=== PATIENT | male | born 1955 | race Two or more races ===

== ENCOUNTER → 2024-05-01 | Outpatient (CLI) | payer OTHER, MEDICAID, SELFPAY ==
[2024-05-01 08:36] LABS: Basophils % (Auto) 0 % (0-2.5); Eosinophils # (Auto) 0.1 Thou/mm3 (0.0-0.5); Eosinophils % (Auto) 1 % (0-10); Hematocrit 56.8 % (41.0-53.0); Hemoglobin 18.6 g/dL (13.5-16.0); Immature Granulocytes % (Auto) 0 % (0-0); Immature Granulocytes Auto 0.03 Thou/mm3 (0.00-0.00); Lymphocytes # (Auto) 3.4 Thou/mm3 (1.0-4.8); Lymphocytes % (Auto) 35 % (10-50); Mean Corpuscular HGB Conc 32.7 g/dl (31.0-37.0); Mean Corpuscular Volume 89 fL (80-100); Monocytes # (Auto) 0.6 Thou/mm3 (0.0-0.8); Monocytes % (Auto) 6 % (0-12); Neutrophils # (Auto) 5.6 Thou/mm3 (1.8-7.7); Neutrophils % (Auto) 57 % (37-80); Nucleated Red Blood Cell % 0 /100 WBC (0); Platelet Count 232 Thou/mm3 (140-440); RDW Standard Deviation 43.6 fL (35.1-43.9); Red Blood Count 6.41 Miln/mm3 (4.50-5.90); White Blood Count 9.7 Thou/mm3 (3.8-10.6)
[2024-05-01 09:11] LABS: Glucose Estimated Average 117 mg/dL (80-131); Hemoglobin A1C 5.7 % Hgb (4.8-6.0)
[2024-05-01 09:11] LABS: Creatinine MALB Rnd Ur 166 mg/dL (30-125); Microalbumin Creat Ratio 14 mg/gCrea (<30); Microalbumin, Random Urine 24 mg/L (0-300)
[2024-05-01 09:15] LABS: Alanine Aminotransferase 65 U/L (10-49); Albumin, Serum 4.3 gm/dL (3.4-4.8); Albumin/Globulin Ratio 1.4 (1.2-2.2); Alkaline Phosphatase 100 U/L (46-116); Anion Gap 5 (7-16); Aspartate Amino Transferase 34 U/L (0-34); BUN/Creatinine Ratio 14 Ratio (12-20); Bilirubin,Total 0.9 mg/dL (0.3-1.2); Blood Urea Nitrogen 17 mg/dL (9-23); Calcium 9.3 mg/dL (8.3-10.6); Calcium (Corrected) 9.3 mg/dL (8.5-10.1); Carbon Dioxide 29.3 mMol/L (20.0-31.0); Cardiac Risk Estimate 2.6 RATIO (4.0-6.7); Chloride 106 mMol/L (98-107); Cholesterol 94 mg/dL (132-200); Creatinine (Component) 1.2 mg/dL (0.6-1.3); Globulin 3.1 gm/dL (2.3-3.5); Glucose 123 mg/dL (74-106); HDL Cholesterol 36 mg/dL (40-60); LDL Cholesterol,Calculated 32 mg/dL (0-130); Osmolality,Calculated 281 (275-295); Potassium 4.3 mMol/L (3.4-5.1); Sodium 140 mMol/L (136-145); Total Protein 7.4 gm/dL (5.7-8.2); Triglycerides 129 mg/dL (30-150); eGFR > 60 See Note
== END | disposition home or self-care (01) ==
PROVIDERS: PCP Internal Medicine; Referring Provider Internal Medicine; Visit Provider Internal Medicine
DX: E11.65 Type 2 diabetes mellitus with hyperglycemia (principal); E78.5 Hyperlipidemia, unspecified; I10 Essential (primary) hypertension; Z79.02 Long term (current) use of antithrombotics/antiplatelets
CPT/HCPCS: 36415; 80053; 80061; 82043; 82570; 83036; 85025

== ENCOUNTER → 2024-08-11 | Outpatient (CLI) | payer MEDICARE, MEDICAID, SELFPAY ==
[2024-08-11 07:20] LABS: Misc Send Out* See Sep Rpt
[2024-08-11 08:36] LABS: Basophils % (Auto) 0 % (0-2.5); Eosinophils # (Auto) 0.1 Thou/mm3 (0.0-0.5); Eosinophils % (Auto) 1 % (0-10); Hematocrit 54.2 % (41.0-53.0); Hemoglobin 18.4 g/dL (13.5-16.0); Immature Granulocytes % (Auto) 0 % (0-0); Immature Granulocytes Auto 0.04 Thou/mm3 (0.00-0.00); Immature Reticulocyte Fraction 10.4 % (2.3-13.4); Lymphocytes # (Auto) 3.4 Thou/mm3 (1.0-4.8); Lymphocytes % (Auto) 34 % (10-50); Mean Corpuscular HGB Conc 33.9 g/dl (31.0-37.0); Mean Corpuscular Hemoglobin 30.1 pg (25.0-35.0); Mean Corpuscular Volume 89 fL (80-100); Monocytes # (Auto) 0.6 Thou/mm3 (0.0-0.8); Monocytes % (Auto) 6 % (0-12); Neutrophils # (Auto) 5.7 Thou/mm3 (1.8-7.7); Neutrophils % (Auto) 57 % (37-80); Nucleated Red Blood Cell % 0 /100 WBC (0); Platelet Count 216 Thou/mm3 (140-440); RDW Standard Deviation 42.9 fL (35.1-43.9); Red Blood Count 6.11 Miln/mm3 (4.50-5.90); Reticulocyte % (Auto) 1.6 % (0.5-1.5); Reticulocyte Hgb Content 34.1 pg (28.0-35.0)
[2024-08-11 08:52] LABS: Alanine Aminotransferase 87 U/L (10-49); Albumin, Serum 4.2 gm/dL (3.4-4.8); Albumin/Globulin Ratio 1.4 (1.2-2.2); Alkaline Phosphatase 95 U/L (46-116); Anion Gap 9 (7-16); Aspartate Amino Transferase 43 U/L (0-34); BUN/Creatinine Ratio 19 Ratio (12-20); Bilirubin,Total 1.1 mg/dL (0.3-1.2); Blood Urea Nitrogen 19 mg/dL (9-23); Calcium 9.1 mg/dL (8.3-10.6); Calcium (Corrected) 9.1 mg/dL (8.5-10.1); Carbon Dioxide 25.1 mMol/L (20.0-31.0); Cardiac Risk Estimate 2.5 RATIO (4.0-6.7); Chloride 110 mMol/L (98-107); Cholesterol 96 mg/dL (132-200); Globulin 3.1 gm/dL (2.3-3.5); Glucose 111 mg/dL (74-106); HDL Cholesterol 38 mg/dL (40-60); LDL Cholesterol,Calculated 30 mg/dL (0-130); Osmolality,Calculated 290 (275-295); Potassium 4.1 mMol/L (3.4-5.1); Sodium 144 mMol/L (136-145); Total Protein 7.3 gm/dL (5.7-8.2); Triglycerides 142 mg/dL (30-150); eGFR > 60 See Note
[2024-08-11 08:55] LABS: Folate 10.25 ng/mL (>5.38); Vitamin B12 608 pg/mL (211-911); Vitamin D 25 Hydroxy Total 21.3 ng/mL (7.3-40.2)
[2024-08-11 09:16] LABS: Ferritin 116 ng/mL (10.5-307.3); Total Iron Binding Capacity 319 mcg/dL (250-425)
[2024-08-11 09:25] LABS: Iron 126 mcg/dL (65-175); Percent Iron Saturation 39 % (20-55); Unsaturated Iron Binding 193 (225-295)
[2024-08-11 09:47] LABS: Creatinine MALB Rnd Ur 106 mg/dL (30-125); Microalbumin Creat Ratio 14 mg/gCrea (<30); Microalbumin, Random Urine 15 mg/L (0-300)
[2024-08-11 10:03] LABS: Glucose Estimated Average 114 mg/dL (80-131); Hemoglobin A1C 5.6 % Hgb (4.8-6.0)
== END | disposition home or self-care (01) ==
LOC: COPL 07:00
PROVIDERS: PCP Family Medicine; Referring Provider Nurse Practitioner Family; Visit Provider Nurse Practitioner Family
DX: E11.65 Type 2 diabetes mellitus with hyperglycemia (principal); R79.9 Abnormal finding of blood chemistry, unspecified; I10 Essential (primary) hypertension; Z79.02 Long term (current) use of antithrombotics/antiplatelets
CPT/HCPCS: 36415; 80053; 80061; 82043; 82306; 82570; 82607; 82728; 82746; 83036; 83540; 83550; 85025; 85046

== ENCOUNTER 2024-10-29 08:32 | Outpatient (AMB) | payer MEDICARE, MEDICAID, SELFPAY ==
--- NOTE | 2024-10-29 08:36 | ACNOTE_ITS ---
Vital Signs 10/29/24 08:44 Height 1.78 m Height Method Stated Weight 133.073 kg Weight Measurement Method Standing Scale BMI 42.0 BP 121/82 Blood Pressure Source Automatic Cuff Blood Pressure Location Right Upper Arm Position Sitting Respiration 18 Pulse 93 Pulse Source Monitor Temp 97.8 F Temp Source Temporal Artery Scan Pulse Oximetry (%) 94 L Oxygen Delivery Method Room Air Allergies/Meds Allergies & Medications Allergies No Known Allergies Allergy (Verified 10/29/24 08:46) Medication Reconciliation aspirin 81 mg tablet 81 mg PO QDAY #90 tabs 10/29/24 [Rx] metformin 1,000 mg tablet 1,000 mg PO QDAY 10/29/24 [History Confirmed 10/29/24] amlodipine 2.5 mg tablet 2.5 mg PO QDAY #30 tabs 11/17/24 [Rx] apixaban 5 mg tablet (Eliquis) 5 mg PO BID #60 tabs 11/17/24 [Rx] atorvastatin 40 mg tablet 40 mg PO QHS #30 tabs 11/17/24 [Rx] carvedilol 3.125 mg tablet 3.125 mg PO BID #60 tabs 11/17/24 [Rx] diltiazem HCl 60 mg capsule,extended release 12 hr 60 mg PO BID #60 caps 11/17/24 [Rx] empagliflozin 10 mg tablet (Jardiance) 10 mg PO QDAY #30 tabs 11/17/24 [Rx] famotidine 20 mg tablet 20 mg PO BID #60 tabs 11/17/24 [Rx] metformin 1,000 mg tablet 1,000 mg PO BID #60 tabs 11/17/24 [Rx] semaglutide 1 mg/dose (4 mg/3 mL) subcutaneous pen injector (Ozempic) 1 mg (0.75 mL) subcut QWEEK #3 mL 11/17/24 [Rx] MA Intake Visit Data Collection New Patient or Established: Established Patient (seen at [facility] within 3 years) Seen by Clinical Staff ONLY (RN/MA): No Pain Present Currently: No Pain scale:: 0 Pain Scale Used: TorresTeja/Numerical Market Asset Protection Manager Required: No PCP or OBGYN visit in last 3 months: No Hx Now: No Do You Feel Safe at Home: Yes Authorities Contacted: N/A Smoking Status Smoking Status: Never smoker Immunization / Flu Flu Vaccine in the Last 12 Months: No Flu Vaccine Exclusion Criteria: No Exclusion Criteria Past Medical History Past Medical History CARDIAC: Positive Cardiac Disorders, Atrial Fibrillation and Hypertension; Negative Congestive Heart Failure RESPIRATORY: Negative Chronic Obstructive Pulmonary Disease (COPD) or Asthma GENITOURINARY: Negative Renal Disease ENDOCRINE: Negative Diabetes Mellitus Type 1 or Diabetes Mellitus Type 2 HEMATOLOGIC: Negative Sickle Cell Disease Social History SMOKING STATUS: Smoking status: Never smoker ALCOHOL: Alcohol Intake: Never HOUSING: Housing: House LIVES WITH: Lives With: Children Patient Portal Questionaires Social History Living Situation History Housing: House Tobacco History Smoking Status: Never smoker Alcohol History Alcohol Intake: Never Domestic Abuse History Do You Feel Safe at Home: Yes Review of Systems Report any current symptoms Only answer those that you have currently: Past Medical History Past Medical History Have you ever been diagnosed with any of the following: Cardiology Problems Atrial Fibrillation: Yes Congestive Heart Failure: No Hypertension: Yes Respiratory Problems Chronic Obstructive Pulmonary Disease (COPD): No Asthma: No Genital/Urinary Problems Renal Disease: No Endocrine Problems Diabetes Mellitus Type 1: No Diabetes Mellitus Type 2: No Blood Problems Sickle Cell Disease: No History of Present Illness HPI Narrative 69 year old male wt PMHx CAD, double bipass 2022 at , AFIB on ELIQUIS, HTN, HLD, T2DM, GERD. 11/04/2024: Here to establish care. Previously seeing PCP at [facility] but needs new provider in [facility]. 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 Born and raised in [place],. He is since 20 years, has 3 children in [facility], lives with his son. Has a family hx of heart disease, mother has open heart surgery in her 80s and of old age, brother with colon cancer at the age of 65. Never used tobacco in the past. Used to drink alcohol occasionally, quit 5 years ago, used THC when he was younger but no longer using. Complains of SOB with minimal exertion. States he feels tired and short of breath after 10 min walking, usually has to rest for few minutes before he can continue. Denies chest pain, orthopnea, palpitations, cough, fever, headache, syncope or presyncope, GI or urinary symptoms. Also reports LE edema on and off, not worsened over recently. States he takes his medications as prescribed. He checks his BP at home, usually WNL. On exam, he had 2+ freeman LE edema, with chronic venous status. Lungs clear to auscultation without rales or rhonchi. Vitals WNL. Will refer to cardiology given persistent symptoms of sob, no echo on file, patient needs new operating room assistant in town after his insurance changed. Continue with current medications. He had annual labs done earlier this month, states all were normal per his knowledge, he will return to office with labs for review. Advised to return to office or got to ED if sob worsen or does not improve, or new symptoms including. chest pain, palpitations, worsening LE edema. Labs from : TG 142, Cholesterol 96, LDL 30, HDL 38. A1c 5.6. Hgb 18.4, PLT 216. Coag panel relatively normal. Review of Systems Review of Systems Narrative Review of Systems: 12 point system review negative except for above mentioned. Objective/Exam Narrative Physical exam: GENERAL * Normal appearing adult make, NAD. HEENT * NCAT.?ABBY. Oral mucosa is moist. Patent Nares NECK * Supple, nontender, no thyromegaly, no meningismus, no JVD, no step offs CHEST * RRR, no m/g/r * CTAB, no w/r/r. Symmetrical chest rise. No intercostal subcostal retraction * Atraumatic, nontender, no crepitus, symmetrical expansion. ABDOMEN * Soft, flat, nontender. No guarding/rebound tenderness/masses. * Bowel sounds presents EXTREMITIES * No edema/cyanosis.? SKIN * Warm and dry, no jaundice/rashes. NEUROMUSCULAR * No lumbar or midline, no CVA, no paraspinal muscle spasm or tenderness. * Moves all 4 extremities well, with full ROM and good CSM. * VALLEJO x4, CN II-XII grossly intact. * No focal neurologic deficits. PSYCHIATRY * Normal mood and affect, cooperative, no SI or HI or hallucinations. Assessment & Plan Diagnosis / Problem List (1) Adult general medical exam: Status: Acute (2) SOB (shortness of breath): Status: Acute (3) CAD (coronary artery disease): Status: Acute Qualifiers: Associated angina: without angina Coronary Disease-Associated Artery/Lesion type: bypass graft, autologous artery Qualified Code(s): I25.810 - Atherosclerosis of coronary artery bypass graft(s) without angina pectoris (4) History of coronary artery bypass graft x 2: Status: Acute (5) Congestive heart failure: Status: Acute Qualifiers: Heart failure chronicity: chronic Heart failure type: unspecified Qualified Code(s): I50.9 - Heart failure, unspecified (6) Afib: Status: Acute Qualifiers: Atrial fibrillation type: longstanding persistent Qualified Code(s): I4 8.11 - Longstanding persistent atrial fibrillation (7) HTN (hypertension): Status: Acute Qualifiers: Hypertension type: primary hypertension Qualified Code(s): I10 - Essential (primary) hypertension (8) HLD (hyperlipidemia): Status: Acute Qualifiers: Hyperlipidemia type: mixed hyperlipidemia Qualified Code(s): E78.2 - Mixed hyperlipidemia (9) T2DM (type 2 diabetes mellitus): Status: Acute Qualifiers: Diabetes mellitus complication status: without complication Diabetes 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 Complains of SOB with minimal exertion. Has 2+ LE edema on exam. Lung exam is clear without rales or rhonchi. Denies chest pain. Needs new operating room assistant in town. Will refer to cardiology given persistent symptoms of sob, no echo on file, patient needs new operating room assistant in town after his insurance changed. Continue with current medications. He had annual labs done earlier this month, states all were normal per his knowledge, he will return to office with labs for review. Advised to return to office or got to ED if sob worsen or does not improve, or new symptoms including. chest pain, palpitations, worsening LE edema. Labs from : TG 142, Cholesterol 96, LDL 30, HDL 38. A1c 5.6. Hgb 18.4, PLT 216. Coag panel relatively normal. Continue medications as prescribed. Recommended colonoscopy screening given his age and family history of colon cancer - patient refused at this time Orders: Referrals Cardiology Additional Assessment Attending note: I, Woo Bravo MD, attest that I was physically present for the brown portions of the service and evaluated the patient with the resident and I reviewed and discussed the case with the resident and agree with the resident's findings and plans of care as documented above. Woo Bravo MD Advanced Care Planning Advance care planning discussed with:: patient Physician Billing New Patient New Patient: E/M Level 3-CPT 58369 Office Procedures [facility] Level of Care Nursing/Assessment Patient Status: Established Patient Nursing Assessment/Reassessment: Medication Reconciliation, Update PMH in EMR and Vital Signs Coordination of Care: Complex Care and Chronic Disease 1-5, Consent,records obtained, informed consent, Education Simp Pt/Fam, Lab and Imaging orders and Staff clarify orders Established Patient Charge Established Patient Point Assignment: 100 Established Patient Point Charge: EP Level 3 (80-115)
[2024-10-29 08:44] VITALS: BP 121/82; PULSE 93; RESP 18; TEMP 36.6; O2SAT 94; BMI 42.0
== END 2024-10-29 09:33 | disposition home or self-care (01) ==
PROVIDERS: Supervising Provider Internal Medicine
DX: I25.10 Atherosclerotic heart disease of native coronary artery without angina pectoris (principal); R06.02 Shortness of breath; I11.0 Hypertensive heart disease with heart failure; I50.9 Heart failure, unspecified; I48.91 Unspecified atrial fibrillation; E78.2 Mixed hyperlipidemia; E11.9 Type 2 diabetes mellitus without complications; D75.1 Secondary polycythemia; K21.9 Gastro-esophageal reflux disease without esophagitis; Z79.01 Long term (current) use of anticoagulants; Z95.1 Presence of aortocoronary bypass graft
CPT/HCPCS: 99213; G0463

== ENCOUNTER 2025-01-29 08:52 | Outpatient (AMB) | payer MEDICARE, SELFPAY ==
[2025-01-29 09:16] VITALS: BP 93/64; PULSE 95; RESP 18; TEMP 35.6; O2SAT 95; BMI 41.1
--- NOTE | 2025-01-29 09:16 | PD.RESCLINIC ---
Vital Signs 01/29/25 09:16 Height 1.78 m Height Method Stated Weight 130.408 kg Weight Measurement Method Standing Scale BMI 41.1 BP 93/64 Blood Pressure Source Automatic Cuff Blood Pressure Location Right Upper Arm Position Sitting Respiration 18 Pulse 95 Pulse Source Monitor Temp 96.0 F L Temp Source Temporal Artery Scan Pulse Oximetry (%) 95 Oxygen Delivery Method Room Air Allergies/Meds Allergies & Medications Allergies No Known Allergies Allergy (Verified 10/29/24 08:46) MA Intake Visit Data Collection New Patient or Established: Established Patient (seen at [facility] within 3 years) Seen by Clinical Staff ONLY (RN/MA): No Reason for Visit:: PT HERE IN OFFICE DOING WELL PT COMPLAINTS OF FATIGUE Pain Present Currently: No Spar Cap Beveler Required: No PCP or OBGYN visit in last 3 months: Yes Date of Last PCP or OBGYN visit: 10/29/24 Do You Feel Safe at Home: Yes Authorities Contacted: N/A Smoking Status Smoking Status: Never smoker Immunization / Flu Flu Vaccine in the Last 12 Months: No Flu Vaccine Exclusion Criteria: Refused by Patient Past Medical History Past Medical History CARDIAC: Positive Cardiac Disorders, Atrial Fibrillation and Hypertension; Negative Congestive Heart Failure RESPIRATORY: Negative Chronic Obstructive Pulmonary Disease (COPD) or Asthma GENITOURINARY: Negative Renal Disease ENDOCRINE: Negative Diabetes Mellitus Type 1 or Diabetes Mellitus Type 2 HEMATOLOGIC: Negative Sickle Cell Disease Social History SMOKING STATUS: Smoking status: Never smoker ALCOHOL: Alcohol Intake: Never HOUSING: Housing: House LIVES WITH: Lives With: Children Patient Portal Questionaires Social History Living Situation History Housing: House Tobacco History Smoking Status: Never smoker Alcohol History Alcohol Intake: Never Domestic Abuse History Do You Feel Safe at Home: Yes Review of Systems Report any current symptoms Only answer those that you have currently: Past Medical History Past Medical History Have you ever been diagnosed with any of the following: Cardiology Problems Atrial Fibrillation: Yes Congestive Heart Failure: No Hypertension: Yes Respiratory Problems Chronic Obstructive Pulmonary Disease (COPD): No Asthma: No Genital/Urinary Problems Renal Disease: No Endocrine Problems Diabetes Mellitus Type 1: No Diabetes Mellitus Type 2: No Blood Problems Sickle Cell Disease: No History of Present Illness HPI Narrative 69 year old male wth PMHx CAD, double bipass 2022 at [place], AFIB on ELIQUIS, HTN, HLD, T2DM, GERD. 11/04/2024: Here to establish care. Previously seeing PCP at [place] but needs new provider in [facility]. 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 Born and raised in [place],. He is since 20 years, has 3 children in town, lives with his son. Has a family hx of heart disease, mother has open heart surgery in her 80s and of old age, brother with colon cancer at the age of 65. Never used tobacco in the past. Used to drink alcohol occasionally, quit 5 years ago, used THC when he was younger but no longer using. Complains of SOB with minimal exertion. States he feels tired and short of breath after 10 min walking, usually has to rest for few minutes before he can continue. Denies chest pain, orthopnea, palpitations, cough, fever, headache, syncope or presyncope, GI or urinary symptoms. Also reports LE edema on and off, not worsened over recently. States he takes his medications as prescribed. He checks his BP at home, usually WNL. On exam, he had 2+ freeman LE edema, with chronic venous status. Lungs clear to auscultation without rales or rhonchi. Vitals WNL. Will refer to cardiology given persistent symptoms of sob, no echo on file, patient needs new retail services professional in [facility] after his insurance changed. Continue with current medications. He had annual labs done earlier this month, states all were normal per his knowledge, he will return to office with labs for review. Advised to return to office or got to ED if sob worsen or does not improve, or new symptoms including. chest pain, palpitations, worsening LE edema. Labs from : TG 142, Cholesterol 96, LDL 30, HDL 38. A1c 5.6. Hgb 18.4, PLT 216. Coag panel relatively normal. 01/29/25: Patient was seen and examined in the clinic for follow-up. Patient reported he has been feeling well endorsed mild bilateral knee pain occasionally. He informed that patient had a CABG in 2022 twice. He reported his blood sugars have been under control around 120 mg/dL and A1c was 5.6. He was initially given some samples for Ozempic however insurance declined as his A1c was 5.6. Patient is not checking his blood pressure at home and was recommended to chart his blood pressure for better regulation. Prescription refills were given for all of his medications. CBC and CMP were ordered to monitor his hemoglobin and kidney functions. There is a concern for obstructive sleep apnea as patient endorses snoring at night and has a BMI of 41 therefore, Wegovy was ordered 1 mg once weekly as patient will benefit with weight loss to help with possible suspicion for ARLETH and significant cardiac history. Patient is still waiting for his referral to retail services professional and will make a call once referral is completed. Follow-up in a month. Review of Systems Review of Systems Systems Reviewed: All systems reviewed, normal except as documented Objective/Exam Narrative Physical exam: GENERAL APPEARANCE: AxOx4, obese male in no acute distress. HEENT: NC, AT. MMM. EOMI, clear conjunctiva, oropharynx clear. NECK: Supple without lymphadenopathy. No stiffness or restricted ROM. HEART: Irregular rate and regular rhythm, normal S1/S2, no m/r/g LUNGS: CTAB, moving air well. No crackles or wheezes are heard. ABDOMEN: Soft, nontender, nondistended with good bowel sounds heard. BACK: No CVAT, no obvious deformity. EXTREMITIES: Without cyanosis, clubbing or edema. NEUROLOGICAL: Grossly nonfocal. Alert and oriented, moving all 4 extremities. CN not formally tested but appear grossly intact. Observed to ambulate with normal gait. Skin: Warm and dry without any rash. Psych: Appropriate mood and affect Assessment & Plan Diagnosis / Problem List (1) Obesity (BMI 35.0-39.9 without comorbidity): Status: Acute Assessment & Plan: - Patient endorses symptoms of snoring at night and sometimes. There is a concern for possible suspicion for ARLETH/obstructive sleep apnea. BMI 41. - Patient denied sleep studies for now - He was declined for Ozempic given his A1c was 5.6. Plan: - He was prescribed Wegovy 1 mg once weekly for obesity and possible concern for ARLETH - Pending insurance authorization - Recommended daily walk for 30 minutes per tolerance with exercise - Dietary modification including fiber diet and decreasing intake of fried meals and carbs (2) History of coronary artery bypass graft x 2: Status: Acute Assessment & Plan: - Patient has history of bypass x 2 and is currently taking aspirin. 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 insulin use: without residential use Diabetes mellitus complication status: without complication Qualified Code(s): E11.9 - Type 2 diabetes mellitus without complications Assessment & Plan: - Patient reported his blood sugars have been around 130 mg/dL and A1c was 5.6 Plan: - Recommended to continue metformin 1 g twice daily and Jardiance 10 mg once daily -Patient was denied for Ozempic - Ordered CBC and CMP to evaluate kidney functions (4) Afib: Status: Acute Qualifiers: Atrial fibrillation type: longstanding persistent Qualified Code(s): I48.11 - Longstanding persistent atrial fibrillation Assessment & Plan: - Currently rate controlled heart rate was 95 bpm. Plan: - Recommended to continue taking Cardizem,coreg and Eliquis - Bleeding risk for discussed and patient was advised to go to the ER immediately if he is bleeding excessively (5) Polycythemia: Status: Acute Assessment & Plan: - Patient's hemoglobin was 18.4 in August 2024 and hematocrit 54.2 - Possible differentials include ARLETH, P vera, dehydration Plan: - Follow-up with CBC to evaluate hemoglobin and hematocrit. Ideally hematocrit should be less than 45% given significant cardiac risk - Recommended to continue baby aspirin - Patient might need sleep studies next visit if hemoglobin and hematocrit continues to remain elevated - Would recommend blood donation if hemoglobin is persistently elevated (6) CAD (coronary artery disease): Status: Acute Qualifiers: Coronary Disease-Associated Artery/Lesion type: bypass graft, autologous artery Associated angina: without angina Qualified Code(s): I25.810 - Atherosclerosis of coronary artery bypass graft(s) without angina pectoris Assessment & Plan: - Patient has history of bypass x 2 and is currently taking aspirin. Plan: - Recommended to continue taking aspirin -Recommended to continue Jardiance 10 mg once daily -Continue statin therapy -Pending cardiology referral for further evaluation and follow-ups Patient was seen and discussed with attending physician, Dr.Watanakunakorn Darryl Bravo,[id number] Advanced Care Planning Advance care planning discussed with:: patient Office Procedures [facility] Level of Care Nursing/Assessment Patient Status: Established Patient Nursing Assessment/Reassessment: Medication Reconciliation, Update PMH in EMR and Vital Signs Coordination of Care: Complex Care and Chronic Disease 1-5, Consent,records obtained, informed consent, Lab and Imaging orders and Results/Orders obtained Established Patient Charge Established Patient Point Assignment: 80 Established Patient Point Charge: EP Level 3 (80-115)
== END 2025-01-29 09:49 | disposition home or self-care (01) ==
LOC: HODAHC 08:52
PROVIDERS: PCP Student in an Organized Health Care Education/Training Program; Referring Provider Student in an Organized Health Care Education/Training Program; Supervising Provider Student in an Organized Health Care Education/Training Program; Visit Provider Student in an Organized Health Care Education/Training Program
DX: E66.9 Obesity, unspecified (principal); Z68.41 Body mass index [BMI] 40.0-44.9, adult; Z71.3 Dietary counseling and surveillance; Z95.1 Presence of aortocoronary bypass graft; E11.9 Type 2 diabetes mellitus without complications; Z79.84 Long term (current) use of oral hypoglycemic drugs; I48.11 Longstanding persistent atrial fibrillation; Z79.01 Long term (current) use of anticoagulants; D75.1 Secondary polycythemia; I25.10 Atherosclerotic heart disease of native coronary artery without angina pectoris; Z79.82 Long term (current) use of aspirin; Z76.0 Encounter for issue of repeat prescription
CPT/HCPCS: 99213; G0463

== ENCOUNTER 2025-04-10 10:03 | Day surgery (SDC) | payer MEDICARE, SELFPAY ==
[2025-04-08 12:55] VITALS: BMI 42.0
--- NOTE | 2025-04-09 07:00 | EKG_ITS ---
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
[2025-04-09 10:11] LABS: Basophils # (Auto) 0.0 Thou/mm3 (0.0-0.2); Basophils % (Auto) 0 % (0-2.5); Eosinophils # (Auto) 0.2 Thou/mm3 (0.0-0.5); Eosinophils % (Auto) 1 % (0-10); Hematocrit 54.8 % (41.0-53.0); Hemoglobin 18.0 g/dL (13.5-16.0); Immature Granulocytes Auto 0.04 Thou/mm3 (0.00-0.00); Lymphocytes # (Auto) 5.6 Thou/mm3 (1.0-4.8); Lymphocytes % (Auto) 48 % (10-50); Mean Corpuscular HGB Conc 32.8 g/dl (31.0-37.0); Mean Corpuscular Hemoglobin 29.5 pg (25.0-35.0); Mean Corpuscular Volume 90 fL (80-100); Monocytes # (Auto) 1.0 Thou/mm3 (0.0-0.8); Monocytes % (Auto) 8 % (0-12); Neutrophils # (Auto) 4.9 Thou/mm3 (1.8-7.7); Neutrophils % (Auto) 42 % (37-80); Nucleated Red Blood Cell # 0.00 Thou/mm3 (0.00-0.00); Nucleated Red Blood Cell % 0 /100 WBC (0); Platelet Count 200 Thou/mm3 (140-440); RDW Standard Deviation 43.0 fL (35.1-43.9); Red Blood Count 6.10 Miln/mm3 (4.50-5.90); White Blood Count 11.7 Thou/mm3 (3.8-10.6)
[2025-04-09 10:21] LABS: Anion Gap 11 (7-16); BUN/Creatinine Ratio 11 Ratio (12-20); Blood Urea Nitrogen 12 mg/dL (9-23); Calcium 9.1 mg/dL (8.3-10.6); Carbon Dioxide 23.1 mMol/L (20.0-31.0); Chloride 109 mMol/L (98-107); Creatinine (Component) 1.1 mg/dL (0.6-1.3); Estimated Creatinine Clearance 82.0 mL/min (>60); Glucose 121 mg/dL (74-106); Osmolality,Calculated 285 (275-295); Potassium 4.2 mMol/L (3.4-5.1); Sodium 143 mMol/L (136-145); eGFR > 60 See Note
[2025-04-09 10:27] LABS: INR 1.1 (0.9-1.3); Partial Thromboplastin Time 43.5 Seconds (22.0-36.0); Prothrombin Time 11.9 Seconds (9.0-12.2)
[2025-04-10] VITALS (9 sets, daily range): BP systolic 111–151; BP diastolic 78–114; PULSE 85–106; RESP 12–20; TEMP 36.1–36.4; O2SAT 93–96; BMI 41.8
[2025-04-10] MEDS: HYDROcodone/APAP 5/325 TABLET 1 TAB PO (16:18)
[2025-04-10] MEDS: SODIUM CHLORIDE 0.45 % 500 ML 150 ML IV (16:19)
--- NOTE | 2025-04-10 16:30 | PD.CARDCATH ---
Cardiac Cath Procedure Procedure Name Date of procedure: 04/10/25 INTERNAL GRINDER TENDER: Myles Dick MD PROCEDURE PERFORMED: 1. Left heart and right heart cardiac catheterization including right, left coronary angiograms and left ventriculogram - CPT 18741 2. ASHBY angiogram - CPT 54125 - selective catheter placement into an initial second-order thoracic or brachiocephalic branch. 3. Supravalvular aortogram- CPT 13438 4. Conscious sedation for 30 minutes - CPT 51315 5. Ultrasound-guided access of the right radial artery and right femoral vein - CPT 78361 Procedure Narrative HISTORY AND INDICATIONS: Guille Dobbins is a 69M with pmhx significant for CAD s/p double bypass 06/2022 ASHBY to LAD, radial artery to diagonal on ASA, atrial fibrillation on Eliquis, HTN, HLD. Patient had ischemic cardiac work up given history and risk factors. NST showed Abnormal myocardial perfusion study as there is decreased uptake in the inferior lateral segments of LV with stress and improves with rest indicating ischemia. EF at 31%. Normal TID and wall motion. Patient was brought in for an elective cardiac catheterization with bypass graft. hence patient is a candidate for left and right coronary angiograms, scheduled for cardiac catheterization today. Discussed with patient risks, benefits and alternatives of performing left with coronary angiogram including the risks of bleeding, heart rate, stroke and with the procedure. Patient understands the risks and is willing to undergo the procedure. Consent provided for the same. H&P updated and consent was signed prior to the procedure DESCRIPTION OF PROCEDURE: The patient was brought to the cardiac catheterization lab and all asceptic precautions were followed. Patient was given 1 Mg of Versed and 50 mcg of fentanyl for moderate conscious sedation. 2 mL of lidocaine was given in the right wrist. The right femoral artery was accessed via the ultrasound guidance as well as micropuncture technique. A [address] Samoan [address] was [address] [facility] findings: 1. Left ventricular ejection fraction was to 55-60% without any regional wall motion abnormalities. LVEDP was normal at 8 mmHg. There was no significant transvalvular aortic gradient. 2. Right dominant circulation. Left main artery is a large-caliber vessel with mild diffuse stenosis. 3. LAD is a large sized artery with 100% proximal occlusion but patent bypass graft ASHBY to LAD. Medium size diagonal 1 with 50-60% stenosis of ostial portion, and radial artery to diagonal 1 bypass graft is 100% occluded. 4. LCx is a large sized artery with mild difuse disease. Medium OM1 with 70% stenosis of proximal segment and small OM2 with no significant disease. 5. RCA is a large artery with 20-30% stenosis. 6. ASHBY to LAD is patent with no disease. 7. Radial to Diagonal 1 is 100% occluded An Angio-Seal was used to achieve hemostasis of the right femoral artery. Patient will be monitored in the cardiac mounted police for the next 2 to 3 hours and will be sent to the telemetry floor. Patient recommended to follow-up with me in the office within 7 days after discharge. Complications: None Specimens: None Blood loss: Estimated 5 ml Summary/findings: 1. Abnormal stress test: LHC with bypass angiograms were performed which showed mild to moderate CAD. Left main artery with mild diffuse stenosis, patent bypass graft ASHBY to LAD, 50% stenosis of ostial diagonal 1, mild difuse disease of LCx, moderate 70% stenosis of proximal OM1, 100% occluded bypass grafts Radial artery to Diagonal 1. Rest of the coronary branches with no significant angiographic disease. 2. LVEF is normal at 55-60%. Normal LVEDP at 8 mmHg. There was no significant transvalvular aortic gradient. Recommendations: 1. Recommend aggressive medical management and aggressive risk factor modification. 2. Patient recommended not to lift more than 5 lbs for the next 7-10 days and follow up with me in my office in 7 days. Myles Dick MD Interventional Cardiology.
== END 2025-04-10 18:05 | disposition home or self-care (01) ==
PROVIDERS: Referring Provider Internal Medicine Cardiovascular Disease; Visit Provider Internal Medicine Cardiovascular Disease
PROC: (CPT 93567; principal; 2025-04-10 11:30)
DX: I25.10 Atherosclerotic heart disease of native coronary artery without angina pectoris (principal); Z95.1 Presence of aortocoronary bypass graft; R94.39 Abnormal result of other cardiovascular function study; I48.0 Paroxysmal atrial fibrillation; I10 Essential (primary) hypertension; E11.9 Type 2 diabetes mellitus without complications; Z79.899 Other long term (current) drug therapy; Z79.84 Long term (current) use of oral hypoglycemic drugs; Z01.810 Encounter for preprocedural cardiovascular examination; E78.5 Hyperlipidemia, unspecified
CPT/HCPCS: 93567; 93460; G0278; 36415; 80048; 85025; 85610; 85730; 93005; 99152; 99153; A4649; C1760; C1769; C1887; C1894; J0461; J1643; J2250; J2312; J2371; J3010; J3490; J7030; Q9967; A9270; J2305

== ENCOUNTER 2025-04-13 16:03 | Inpatient (IN) | payer MEDICARE, MEDICAID, SELFPAY ==
[2025-04-13] VITALS (9 sets, daily range): BP systolic 115–150; BP diastolic 80–103; PULSE 76–104; RESP 16–20; TEMP 36.7–37.2; O2SAT 94–96; BMI 40.4; BMI 41.2
--- NOTE | 2025-04-13 | XR_ITS ---
Examination: MRI brain without intravenous contrast. Date and time of exam: April 13, 2025, 1755 hours INDICATIONS: Onset dizziness headache blurred vision after angiogram 3 days ago Technique: Multiple axial and sagittal images of the brain obtained. Siemens high-resolution 1.5 Alisha short bore scanners utilized. Sagittal sections, T1-weighted, TR 500, TE 14, are performed. Axial sections proton-density and T2-weighted have been obtained. Inversion recovery axial images, TR 9, 260, TE 111, TI 2500. Diffusion weighted images, axial sections, TR 4800, TE 128, B value 1000 Axial sections, ADC map, TR 4800, TE 128 Findings: Enlargement of the sella turcica is not present. The optic chiasm and infundibular are not remarkable. Prepontine and interpeduncular cisterns are not enlarged. There is no localized enlargement of the medulla or dinah. Fourth ventricle and cerebellar tonsils appear normal in position. No subacute area of hemorrhage density is seen. Mass in the cerebellopontine angle region is not evident. Globes symmetrical. Orbital musculature including medial lateral rectus muscles do not exhibit abnormality. Diffusion-weighted images demonstrate prominent foci of restricted diffusion right thalamus, right caudate nucleus, smaller acute infarcts posterior right corpus callosum, 2 mm focus restricted diffusion posterior right parietal lobe Increased white matter signal prominent Mass effect upon the ventricular system is not identified. Impression: Acute infarcts right basal ganglia, right caudate nucleus, posterior right corpus callosum, posterior right parietal lobe
--- NOTE | 2025-04-13 16:11 | XR_ITS ---
Examination: CT brain head without contrast. 2-D sagittal coronal reconstructions Date and time of exam: 04/13/2025, 4:30 p.m. CTDI: vol (mGy): 58.8 DLP: (mGycm): 1216 INDICATION: Dizziness COMPARISON: None Technique: Multiple CT axial sections of the brain have been obtained, 5 mm slice thickness. Contrast has not been administered. 2-D sagittal, coronal reconstructions have been obtained Low dose protocols were performed. One or more of the following dose reduction techniques were used; automated exposure control, adjustment of the mA and/or KV according to patient size, use of iterative reconstruction technique. Findings: No evidence for acute large vessel transcortical ischemic infarction, hemorrhage, mass, or midline shift. Global cerebral involutional changes are present. Nonspecific cerebral white matter hypoattenuation most likely represents sequela of chronic ischemic microangiopathy in this age demographic. Hypoattenuation in the posterior aspect of the right occipital lobe is favored to represent encephalomalacia from chronic infarct. The calvarium is intact. Mucosal hypertrophy noted in the mid right ethmoid sinus. No fluid levels or masses in the paranasal sinuses. No mastoid effusions or middle ear opacification. Limited views of the maxilla show multiple periapical lucencies concerning for dental abscesses. Impression: Hypoattenuation in the posterior aspect of the right occipital lobe is favored to represent encephalomalacia from chronic infarct. Brain MRI is currently pending and this finding can be reassessed on the brain MRI to ensure that it is chronic. Otherwise, no evidence for hemorrhage, mass, midline shift or obstructive hydrocephalus. Limited views of the maxilla show multiple periapical lucencies concerning for dental abscesses.
--- NOTE | 2025-04-13 16:11 | EKG_ITS ---
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: : [id number] Requested By: Nicole Storey Order Number: [id number] Reading MD: Nicole Storey Measurements Intervals Hurst Rate: 98 P: NE: QRS: -62 QRSD: 109 T: 30 QT: 371 QTc: 475 Interpretive Statements ATRIAL FIBRILLATION PATTERN CONSISTENT WITH PULMONARY DISEASE INCOMPLETE RIGHT BUNDLE BRANCH BLOCK [90+ ms QRS DURATION, TERMINAL R IN V1/V2, 40+ ms S IN I/aVL/V4/V5/V6] INFERIOR MYOCARDIAL INFARCTION , PROBABLY OLD [40+ ms Q WAVE AND/OR ST/T ABNORMALITY IN II/aVF] Compared to ECG 04/09/2025 08:59:26 Incomplete right bundle-branch block now present Myocardial infarct finding still present /store/S0/[id number]/ecg/[id number].pdf
--- NOTE | 2025-04-13 16:31 | PD.EDDIZZY ---
ED Dizzyness RME/HPI General Chief Complaint: Dizziness Stated Complaint: DIZZINESS, BLURRED VISION, SENT BY PCP Time Seen by Provider: 04/13/25 16:10 Arrival date/time: 04/13/25 16:03 RME / HPI RME / HPI Narrative: 69 year old male with history of CAD, s/p CABG, atrial fibrillation, hypertension, diabetes presents to the ED referred by his communication consultant Dr. Dick for evaluation of persistent dizziness and blurred vision after angiogram 3 days ago. Patient describes his dizziness as a spinning sensation that is worse when he stands. States he is unable to walk without assistance due to constantly feeling he is going to fall. No falls reported. Denies any history of similar symptoms or headache. Patient states he was instructed to stop the Eliquis before the Angiogram and has since restarted. Related Data Home Medications ?Medication ?Instructions ?Recorded ?Confirmed metoprolol succinate 100 mg 100 mg PO QDAY 04/10/25 04/13/25 capsule sprinkle, ext. release 24 hr Previous Rx's ?Medication ?Instructions ?Recorded apixaban 5 mg tablet (Eliquis) 5 mg PO BID #60 tabs 01/29/25 aspirin 81 mg tablet 81 mg PO QDAY #90 tabs 01/29/25 atorvastatin 40 mg tablet 40 mg PO QHS #30 tabs 01/29/25 carvedilol 3.125 mg tablet 3.125 mg PO BID #60 tabs 01/29/25 diltiazem HCl 60 mg 60 mg PO BID #60 caps 01/29/25 capsule,extended release 12 hr empagliflozin 10 mg tablet 10 mg PO QDAY #30 tabs 01/29/25 (Jardiance) famotidine 20 mg tablet 20 mg PO BID #60 tabs 01/29/25 metformin 1,000 mg tablet 1,000 mg PO BID #60 tabs 01/29/25 semaglutide (weight loss) 1 mg/0.5 1 mg (0.5 mL) subcut QWEEK #2 mL 01/29/25 mL subcutaneous pen injector (Wegovy) Allergies Allergy/AdvReac Type Severity Reaction Status Date / Time No Known Allergies Allergy Verified 04/13/25 16:05 Review of Systems Review of Systems Systems Reviewed: All systems reviewed, normal except as documented Past Medical History Past Medical History CARDIAC: Positive Cardiac Disorders, Cardiac Arrhythmia, Atrial Fibrillation and Hypertension ENDOCRINE: Positive Diabetes Mellitus Type 2 Surgical History SURGICAL: Positive Cardiac Surgery and Open Heart Surgery (2022) Social History SMOKING STATUS: Never smoker ED Exam Narrative Physical exam: GENERAL APPEARANCE: alert and oriented x 4, well-developed, well-nourished, no acute distress HEENT: Normocephalic, atraumatic; pupils equal, round, reactive to light; EOMI; mucous membranes pink, moist; oropharynx clear NECK: Supple LUNGS: CTABL; no wheezes, no rales, no rhonchi HEART: Regular rate, regular rhythm; normal S1, S2; no murmurs ABDOMEN: non distended; normal BS; soft, no tenderness, no guarding, no rebound; no masses, no organomegaly, no hernia BACK: no CVA tenderness EXTREMITIES: atraumatic; no edema NEUROLOGIC: awake; alert and oriented x4; cranial nerves II-XII grossly intact PSYCHIATRIC: appropriate mood and affect SKIN: warm, dry, normal color; no rashes Course Quality Measures none Orders Category Date Time Status Admit to Inpatient Status Routine Admission 04/13/25 20:32 Active Patient Condition Routine Admission 04/13/25 20:32 Ordered Aspiration precautions ONCE Care 04/13/25 20:40 Completed Bedrest NOW Care 04/13/25 20:34 Completed Bedside Blood Glucose ACHS Care 04/13/25 20:48 Completed Bedside Blood Glucose NOW Care 04/13/25 18:56 Completed Gas Line Installer NOW Care 04/13/25 18:56 Completed Gas Line Installer Q4H START 00 Care 04/13/25 20:48 Completed Continuous Pulse Oximetry NOW Care 04/13/25 18:56 Completed EKG (ED ONLY) *Do not use* NOW Care 04/13/25 16:11 Completed Head of Bed Elevation NOW Care 04/13/25 20:40 Completed In and Out Catheter NEEDED Care 04/13/25 18:56 Completed Insert IV NOW Care 04/13/25 18:56 Completed MRI Screening NOW Care 04/13/25 16:12 Completed Miscellaneous Nursing Order X1 Care 04/13/25 20:34 Completed NIH Stroke Scale now Care 04/13/25 18:56 Completed NPO NOW Care 04/13/25 18:56 Completed Neuro Check Q4H Care 04/13/25 20:32 Completed Notify provider NEEDED Care 04/13/25 20:32 Completed Nurse Swallow Screen X1 Care 04/13/25 20:32 Completed Nurse Swallow Screen x1 Care 04/13/25 18:56 Completed Obtain weight 06 Care 04/13/25 20:33 Completed Orthostatic Vitals NOW Care 04/13/25 16:19 Completed Seizure precautions NEEDED Care 04/13/25 20:34 Completed Strict Intake and Output Routine Care 04/13/25 20:33 Ordered Visual Acuity NOW Care 04/13/25 16:19 Completed Consult to Neurology / Tele-Neurology Routine Cons 04/13/25 18:56 Active Diet Carbohydrate Consistent Low Diet 04/13/[address] head/brain wo con Stat Exams 04/13/25 16:11 Completed EKG (ED Only) Stat Exams 04/13/25 16:11 Draft MR head/brain wo con Stat Exams 04/13/25 Completed Alcohol, Blood Medical Stat Lab 04/13/25 16:39 Completed B-Type Natriuretic Peptide Stat Lab 04/13/25 16:39 Completed CBC Stat Lab 04/13/25 16:39 Completed Comprehensive Metabolic Panel Stat Lab 04/13/25 16:39 Completed Drug Screen,Urine Stat Lab 04/13/25 17:00 Completed Lipase Stat Lab 04/13/25 16:39 Completed Magnesium Stat Lab 04/13/25 16:39 Completed Partial Thromboplastin Time Stat Lab 04/13/25 16:39 Completed Prothrombin Time with INR Stat Lab 04/13/25 16:39 Completed Troponin I Stat Lab 04/13/25 16:39 Completed UA, C/S IF [Urinalysis, C/S if Indicated] Stat Lab 04/13/25 17:00 Completed Acetaminophen Tab [Tylenol Tab] Med 04/13/25 20:32 Discontinued 650 mg PO Q6H PRN Apixaban [Eliquis] Med 04/13/25 21:00 Discontinued 5 mg PO BID Aspirin [Ecotrin] Med 04/14/25 09:00 Discontinued 81 mg PO QDAY Atorvastatin Calcium [Lipitor] Med 04/13/25 21:00 Discontinued 40 mg PO HS Dextrose 50% Syr [D50w Syringe Abboject] Med 04/13/25 20:40 Discontinued 25 ml IV Q15MIN PRN Dextrose 50% Syr [D50w Syringe Abboject] Med 04/13/25 20:40 Discontinued 50 ml IV Q15MIN PRN Diltiazem Cd [Cardizem Cd] Med 04/14/25 09:00 Discontinued 120 mg PO DAILY Glucagon Inj Med 04/13/25 20:40 Discontinued 1 mg IM Q15MIN PRN INSULIN LISPRO (AdmeLOG) [HumaLOG] Med 04/14/25 07:30 Discontinued See Protocol SC AC Labetalol IV [Trandate IV] Med 04/13/25 18:56 Discontinued 10 mg IVP Q15M PRN Metoprolol Succinate Xl [Toprol Xl] Med 04/13/25 20:45 Discontinued 100 mg PO QDAY Pantoprazole Inj [Protonix Inj] Med 04/13/25 21:00 Discontinued 40 mg IVP QDAY Sodium Chloride 0.9% 1000 ml [Ns] 1,000 ml Med 04/13/25 19:00 Discontinued IV Q10H Code Status Routine Oth 04/13/25 20:32 Completed Oxygen Delivery NOW RT 04/13/25 18:56 Completed Vital Signs Vital signs: Vital Signs Temperature 98.0 F 04/13/25 16:12 Pulse Rate 88 04/13/25 16:12 Respiratory Rate 18 04/13/25 16:12 Blood Pressure 134/84 H 04/13/25 16:12 Pulse Oximetry (%) 96 04/13/25 16:12 Oxygen Delivery Method Room Air 04/13/25 16:12 Pulse ox is 96% on room air which is adequate. Dizziness MDM Narrative MDM Narrative:: IBetty, am scribing for and in the presence of Dr. Myers. I spoke with communication consultant Dr. Dick however MRI report is not back. Will call back once resulted. 1800: Care signed out to Dr. Leblanc pending MRI report and final disposition. Patient data External records reviewed:: [facility] previous records Clinical information provided by:: patient Social determinants that could affect healthcare access:: none Patient has the following chronic illnesses:: CAD, s/p CABG, atrial fibrillation, hypertension, diabetes How is presenting disease/condition affected by chronic disease/condition?: exacerbated by Evaluation data The following diagnostics were reviewed and interpreted by me:: lab results, radiology exam(s) and EKG tracing(s) (EKG @ 16:16. Atrial fibrillation, rate 98, no STEMI. ) Lab and/or radiology exams considered but not ordered:: None Interpretation Summary: Ordering Physician: Nicole Myers MD Date of Service: 04/13/25 Procedure(s): CT head/brain wo con Accession Number(s): [id number] cc: NO PRIMARY/FAMILY,PHYSICIAN; Nicole Myers MD; Janak York DO~ Examination: CT brain head without contrast. 2-D sagittal coronal reconstructions Date and time of exam: 04/13/2025, 4:30 p.m. CTDI: vol (mGy): 58.8 DLP: (mGycm): 1216 INDICATION: Dizziness COMPARISON: None Technique: Multiple CT axial sections of the brain have been obtained, 5 mm slice thickness. Contrast has not been administered. 2-D sagittal, coronal reconstructions have been obtained Low dose protocols were performed. One or more of the following dose reduction techniques were used; automated exposure control, adjustment of the mA and/or KV according to patient size, use of iterative reconstruction technique. Findings: No evidence for acute large vessel transcortical ischemic infarction, hemorrhage, mass, or midline shift. Global cerebral involutional changes are present. Nonspecific cerebral white matter hypoattenuation most likely represents sequela of chronic ischemic microangiopathy in this age demographic. Hypoattenuation in the posterior aspect of the right occipital lobe is favored to represent encephalomalacia from chronic infarct. The calvarium is intact. Mucosal hypertrophy noted in the mid right ethmoid sinus. No fluid levels or masses in the paranasal sinuses. No mastoid effusions or middle ear opacification. Limited views of the maxilla show multiple periapical lucencies concerning for dental abscesses. Impression: Hypoattenuation in the posterior aspect of the right occipital lobe is favored to represent encephalomalacia from chronic infarct. Brain MRI is currently pending and this finding can be reassessed on the brain MRI to ensure that it is chronic. Otherwise, no evidence for hemorrhage, mass, midline shift or obstructive hydrocephalus. Limited views of the maxilla show multiple periapical lucencies concerning for dental abscesses. Dictated By: Janak York DO Signed By: <Electronically signed by Janak York DO in OV> 04/13/25 1704 Medications / Prescriptions Medications or Prescriptions considered but not ordered:: None Medication administrations:: Medication Administration History Discontinued Medications Acetaminophen (Acetaminophen 325 Mg Tablet) 650 mg PO Q6H PRN PRN Reason: PAIN 1-3 OR FEVER > 101 Stop: 05/13/25 20:31 Apixaban (Apixaban 2.5 Mg Tablet) 5 mg PO BID CHELE Stop: 05/13/25 20:59 Last Admin: 04/15/25 08:43 Dose: 5 mg Documented By: Admin: 04/14/25 20:20 Dose: 5 mg Documented By: Admin: 04/14/25 08:52 Dose: 5 mg Documented By: Admin: 04/13/25 21:03 Dose: 5 mg Documented By: LIDYA Aspirin (Aspirin Ec 81 Mg Tabec) 81 mg PO QDAY [facility] Stop: 05/14/25 08:59 Last Admin: 04/15/25 08:43 Dose: 81 mg Documented By: Admin: 04/14/25 08:53 Dose: 81 mg Documented By: PHILIPPE Atorvastatin Calcium (Atorvastatin Calcium 20 Mg Tablet) 40 mg PO HS [facility] Stop: 05/13/25 20:59 Last Admin: 04/14/25 20:21 Dose: 40 mg Documented By: Admin: 04/13/25 21:03 Dose: 40 mg Documented By: LIDYA Dextrose (Dextrose 50%-Water Inj 50 Ml Syringe) 25 ml IV Q15MIN PRN PRN Reason: BG 50-70 responsive npo pt Stop: 05/13/25 20:39 Dextrose (Dextrose 50%-Water Inj 50 Ml Syringe) 50 ml IV Q15MIN PRN PRN Reason: BG <50 OR BG <70 & pt unresponsive Stop: 05/13/25 20:39 Diltiazem HCl (Diltiazem Cd 120 Mg Capcr) 120 mg PO DAILY CHELE Stop: 05/14/25 08:59 Last Admin: 04/15/25 08:43 Dose: 120 mg Documented By: Admin: 04/14/25 08:51 Dose: 120 mg Documented By: PHILIPPE Glucagon (Glucagon Inj 1 Mg Vial) 1 mg IM Q15MIN PRN PRN Reason: BG <70, and no IV access Sodium Chloride (Ns) 1,000 mls @ 100 mls/hr IV Q10H CHELE Stop: 05/13/25 18:59 Last Admin: 04/13/25 19:30 Dose: 100 mls/hr Documented By: LIDYA Magnesium Sulfate (Magnesium Sulfate Ivpb) 4 gm in 50 mls @ 12.5 mls/hr IV X1 ONE Stop: 04/14/25 01:24 Last Admin: 04/13/25 21:59 Dose: 12.5 mls/hr Documented By: LIDYA Insulin Human Lispro (Insulin Lispro (Admelog) 1 Unit/0.01 Ml Unit) 0 unit SC AC [facility]; Protocol Stop: 05/14/25 07:29 Last Admin: 04/15/25 12:42 Dose: Not Given Documented By: GAVI Non-Admin Reason: Per Protocol Admin: 04/15/25 07:51 Dose: Not Given Documented By: GAVI Velasco-Sharif Reason: Per Protocol Admin: 04/14/25 18:26 Dose: Not Given Documented By: PHILIPPE Non-Admin Reason: Per Protocol Admin: 04/14/25 11:38 Dose: Not Given Documented By: PHILIPPE Non-Admin Reason: Per Protocol Admin: 04/14/25 07:35 Dose: Not Given Documented By: PHILIPPE Non-Admin Reason: Per Protocol Labetalol HCl (Labetalol Inj 5 Mg/Ml Vial 20 Ml) 10 mg IVP Q15M PRN PRN Reason: HYPER Metoprolol Succinate (Metoprolol Succinate Xl 25 Mg Tabcr) 100 mg PO QDAY [facility] Stop: 05/13/25 20:44 Last Admin: 04/15/25 08:44 Dose: 100 mg Documented By: Admin: 04/14/25 08:52 Dose: 100 mg Documented By: Admin: 04/13/25 21:03 Dose: 100 mg Documented By: LIDYA Pantoprazole Sodium (Pantoprazole Inj 40 Mg Vial) 40 mg IVP QDAY [facility] Stop: 05/13/25 20:59 Last Admin: 04/14/25 08:53 Dose: 40 mg Documented By: Admin: 04/13/25 21:03 Dose: 40 mg Documented By: LIDYA Pantoprazole Sodium (Pantoprazole 40 Mg Tablet) 40 mg PO QDAY [facility] Stop: 05/15/25 08:59 Last Admin: 04/15/25 08:43 Dose: 40 mg Documented By: GAVI Potassium Chloride (Potassium Chloride 20 Meq Tabcr) 40 meq PO X1 ONE Stop: 04/13/25 21:26 Last Admin: 04/13/25 21:58 Dose: 40 meq Documented By: LIDYA None Consultations Consultation(s) initiated? (list below): Yes Consultation #1 (Physician, Specialty, Details): I spoke with communication consultant Dr. Dick. Diagnosis Most likely diagnosis given after review of the tests above:: Dizziness Admission Indicated Admission indicated?: not indicated Explain why admission is indicated or not indicated:: Signed out pending final disposition. Admission Request Was there a request for admission?: No Disposition Plan Disposition Plan: other (specify) (Signed out to Dr. Leblanc ) Discharge Plan Problem List Clinical Impression: Dizziness Discharge Order Discharge Orders: Discharge (Routine); Ordered 04/15/25 Ordered By: Pipe Watters
[2025-04-13 16:47] LABS: Basophils # (Auto) 0.0 Thou/mm3 (0.0-0.2); Basophils % (Auto) 0 % (0-2.5); Eosinophils # (Auto) 0.1 Thou/mm3 (0.0-0.5); Eosinophils % (Auto) 1 % (0-10); Hematocrit 53.5 % (41.0-53.0); Hemoglobin 17.7 g/dL (13.5-16.0); Immature Granulocytes Auto 0.04 Thou/mm3 (0.00-0.00); Lymphocytes # (Auto) 3.4 Thou/mm3 (1.0-4.8); Lymphocytes % (Auto) 30 % (10-50); Mean Corpuscular HGB Conc 33.1 g/dl (31.0-37.0); Mean Corpuscular Hemoglobin 29.6 pg (25.0-35.0); Mean Corpuscular Volume 90 fL (80-100); Monocytes # (Auto) 0.8 Thou/mm3 (0.0-0.8); Monocytes % (Auto) 7 % (0-12); Neutrophils # (Auto) 6.8 Thou/mm3 (1.8-7.7); Neutrophils % (Auto) 61 % (37-80); Nucleated Red Blood Cell # 0.00 Thou/mm3 (0.00-0.00); Nucleated Red Blood Cell % 0 /100 WBC (0); Platelet Count 193 Thou/mm3 (140-440); RDW Standard Deviation 43.6 fL (35.1-43.9); Red Blood Count 5.98 Miln/mm3 (4.50-5.90); White Blood Count 11.1 Thou/mm3 (3.8-10.6)
[2025-04-13 17:05] LABS: B-Type Natriuretic Peptide 97 pg/mL (0-100)
[2025-04-13 17:06] LABS: INR 1.1 (0.9-1.3); Partial Thromboplastin Time 44.0 Seconds (22.0-36.0); Prothrombin Time 11.8 Seconds (9.0-12.2)
[2025-04-13 17:11] LABS: Collection Type, Urine Clean Catch
[2025-04-13 17:12] LABS: Alanine Aminotransferase 25 U/L (10-49); Albumin, Serum 4.5 gm/dL (3.4-4.8); Albumin/Globulin Ratio 1.5 (1.2-2.2); Alcohol, Blood Medical < 3.0 mg/dL (0-10.0); Alkaline Phosphatase 80 U/L (46-116); Anion Gap 12 (7-16); Aspartate Amino Transferase 30 U/L (0-34); BUN/Creatinine Ratio 11 Ratio (12-20); Bilirubin,Total 0.7 mg/dL (0.3-1.2); Blood Urea Nitrogen 12 mg/dL (9-23); Calcium 9.3 mg/dL (8.3-10.6); Calcium (Corrected) 9.3 mg/dL (8.5-10.1); Carbon Dioxide 24.5 mMol/L (20.0-31.0); Chloride 109 mMol/L (98-107); Creatinine (Component) 1.1 mg/dL (0.6-1.3); Estimated Creatinine Clearance 82.8 mL/min (>60); Globulin 3.1 gm/dL (2.3-3.5); Glucose 114 mg/dL (74-106); Lipase 40 U/L (12-53); Magnesium 1.9 mg/dL (1.6-2.6); Osmolality,Calculated 289 (275-295); Potassium 3.8 mMol/L (3.4-5.1); Sodium 145 mMol/L (136-145); Total Protein 7.6 gm/dL (5.7-8.2); Troponin I < 0.020 ng/mL (0.0-0.045); eGFR > 60 See Note
[2025-04-13 17:27] LABS: Amphetamine/Methamp Scrn,U Negative (Negative); Barbiturate Screen,Urine Negative (Negative); Benzodiazepines Screen,Urine Positive (Negative); Benzoylecgonine Screen, Ur Negative (Negative); Fentanyl Screen,Urine Positive (Negative); Opiate Screen,Urine Negative (Negative); THC Screen,Urine Negative (Negative)
[2025-04-13 17:28] LABS: Bilirubin,Urine Negative (Negative); Blood,Urine Negative (Negative); Color,Urine Yellow (Lt Yel-Yel); Culture Indicated,Urine Not Indicated; Glucose, Urine 4+ (Negative); Hyaline Casts,Urine < 1 /hpf (0-1); Ketones,Urine Negative (Negative); Leukocyte Esterase,Urine Negative (Negative); Nitrite,Urine Negative (Negative); PH,Urine 5.5 (5.0-7.0); Protein,Urine 1+ (Neg - Trace); RBC,Urine 3 /hpf (0-3); Specific Gravity,Urine 1.036 (1.001-1.035); Squamous Epithelial Cell,Urine < 1 /hpf (0-5); Transitional Epi Cells,Urine < 1 /hpf (0-5); Urobilinogen,Urine Negative mg/dL (0.0-1.0); WBC,Urine 2 /hpf (0-5)
[2025-04-13 17:35] LABS: Clarity,Urine Hazy (Clear/Hazy)
--- NOTE | 2025-04-13 19:00 | PD.EDADDENDU ---
Emergency Room Addendum Addendum Narrative: I took over the care from previous shift physician, Dr. Myers, at 6 PM on 04/13/2025. See previous notes for complete H & P and ED course. I reviewed all diagnostic test results. Diagnoses include: CVA 18:56 - I discussed the case with our teleneurology. About the presentation and exam and diagnostics and treatments here. And need of further care in the hospital. 20:32 - I discussed the case with our hospitalist. About the presentation and exam and diagnostics and treatments here. And need of further care in the hospital. Will accept the patient. Erick Leblanc MD
--- NOTE | 2025-04-13 19:05 | PC.NURSE ---
DR. VICKI RIDDLE (TELENEUROLOGIST) ASSESSING PT AT THIS TIME VIA TELENEUROCART; PER DR. Tyrone RIDDLE, CT HEAD/BRAIN WO CON & MRI HEAD/BRAIN HAS BEEN DONE ALREADY. NO CTA OF HEAD/BRAIN NEEDED AT THIS TIME. PT NIH SCORE IS 1 FOR MILD SENSORY LOSS ON L ARM. PT NOT A THROMBOLYTIC CANDIDATE AT THIS TIME.
[2025-04-13] MEDS: SODIUM CHLORIDE 0.9% 1000 ML 1,000 ML 100 ML IV (19:30)
--- NOTE | 2025-04-13 19:35 | ESCONSULT_ITS ---
Tele Neuro Consultation Consultation Date 04/13/25 Most Recent Vital Signs Last Vital Signs Temp 98.1 F 04/13/25 19:28 Pulse 93 04/13/25 19:32 Resp 16 04/13/25 19:28 BP 119/103 H 04/13/25 19:32 Pulse Ox 95 04/13/25 19:28 O2 Del Method Room Air 04/13/25 19:28 Laboratory-Coagulation Panel PT 11.8 Seconds (9.0-12.2) 04/13/25 16:39 INR 1.1 (0.9-1.3) 04/13/25 16:39 APTT 44.0 Seconds (22.0-36.0) H 04/13/25 16:39 Consultation Narrative [facility] TeleNeurology Consult Services Patient Name:???Guille Prince Date of :???1955 Identification Number:???CSN - [id number] Date of Service:???04/13/2025 18:55:03 Diagnosis:?I63.89 - Cerebrovascular accident (CVA) due to other mechanism ([facility]) Impression: ?This is a 69 y/o man who underwent cardiac catheterization 04/10 and ever since being in recovery after the procedure he has had blurry vision and dizziness when standing. Today, had a follow up visit with the person who performed the angio and they suggested that he come in for a CT and MRI brain, which have both been performed. The patient denies headache, speech changes, numbness, weakness, or falls. #1 Acute right basal ganglia, caudate, posterior corpus callosum and parietal lobe ischemic strokes secondary to cardiac catheterization, periprocedural #2 Left upper and lower extremity sensory deficit, secondary to #1 #3 Gait unsteadiness, secondary to #1 The patient has a lucretia-procedural stroke and needs PT/OT evaluation. Please perform a bedside swallow and then resume his normal medications including apixaban. Fall precautions while hospitalized. He does not require further evaluation into the stroke mechanism as the mechanism is known. Sign Out: ? Discussed with Emergency Department Provider Advanced Imaging: Advanced Imaging Deferred because: Does not meet criteria due to being out of the 24-hour window for thrombectomy Metrics: Last Known Well: 04/10/2025 12:00:00 Dispatch Time: 04/13/2025 18:55:02 Arrival Time: 04/13/2025 16:03:00 Initial Response Time: 04/13/2025 18:56:27Symptoms: dizziness when standing and blurry vision. Initial patient interaction: 04/13/2025 18:58:49 NIHSS Assessment Completed: 04/13/2025 19:02:14Patient is not a candidate for Thrombolytic. Thrombolytic Medical Decision: 04/13/2025 19:00:40Patient was not deemed candidate for Thrombolytic because of following reasons: LKW outside 4.5 hr window. . Use of NOAC in last [address] Head: I personally reviewed all the CT images that were available to me and it showed: no hemorrhage, hyperdense vessel sign, or definite acute ischemic changes. Primary Provider Notified of Diagnostic Impression and Management Plan on: 04/13/2025 19:28:09 History of Present Illness:Patient is a 69 year old Male. Patient was brought by private transportation with symptoms of dizziness when standing and blurry vision. This is a 69 y/o man who underwent cardiac catheterization 04/10 and ever since being in recovery after the procedure he has had blurry vision and dizziness when standing. Today, had a follow up visit with the person who performed the angio and they suggested that he come in for a CT and MRI brain, which have both been performed. The patient denies headache, speech changes, numbness, weakness, or falls. Past Medical History: ?Hypertension ?Diabetes Mellitus ?Atrial Fibrillation Medications: Anticoagulant use:??Yes?apixaban Antiplatelet use:?Yes?aspirin Reviewed EMR for current medications Allergies:? Reviewed Social History: Smoking: No Family History: There is no family history of premature cerebrovascular disease pertinent to this consultation ROS : 14 Points Review of Systems was performed and was negative except mentioned in HPI. Past Surgical History: There Is No Surgical History Contributory To Today?s Visit Examination: BP(131/92),?Pulse(81),?Blood Glucose(114) 1A: Level of Consciousness - Alert; keenly responsive?+ 0 1B: Ask Month and Age - Both Questions Right?+ 0 1C: Blink Eyes & Squeeze Hands - Performs Both Tasks?+ 0 2: Test Horizontal Extraocular Movements - Normal?+ 0 3: Test Visual Rollins - No Visual Loss?+ 0 4: Test Facial Palsy (Use Grimace if Obtunded) - Normal symmetry?+ 0 5A: Test Left Arm Motor Drift - No Drift for 10 Seconds?+ 0 5B: Test Right Arm Motor Drift - No Drift for 10 Seconds?+ 0 6A: Test Left Leg Motor Drift - No Drift for 5 Seconds?+ 0 6B: Test Right Leg Motor Drift - No Drift for 5 Seconds?+ 0 7: Test Limb Ataxia (FNF/Heel-Kolb) - No Ataxia?+ 0 8: Test Sensation - Mild-Moderate Loss: Less Sharp/More Dull?+ 1 9: Test Language/Aphasia - Normal; No aphasia?+ 0 10: Test Dysarthria - Normal?+ 0 11: Test Extinction/Inattention - No abnormality?+ 0 NIHSS Score:?1 NIHSS Free Text :?reduced left face ?reduced sensation right upper and right lower extremity ?can't stand unassisted Pre-Morbid Modified Farhat Scale: 0 Points = No symptoms at all Spoke with :?ED physician This consult was conducted in real time using interactive audio and video technology. Patient was informed of the technology being used for this visit and agreed to proceed. Patient located in hospital and provider located at home/office setting. Patient is being evaluated for possible acute neurologic impairment and high p robability of imminent or life-threatening deterioration. I spent total of 30 minutes providing care to this patient, including time for face to face visit via telemedicine, review of medical records, imaging studies and discussion of findings with providers, the patient and/or family. Dr Daija Casas [facility] For Inpatient follow-up with [facility] physician please call [facility] at [phone]. As we are not an outpatient service for any post hospital discharge needs please contact the hospital for assistance. If you have any questions for the [facility] physicians or need to reconsult for clinical or diagnostic changes please contact us via [facility] at . Non-radiologist review of imaging performed to assist with emergent clinical decision-making. Remote physician workstations do not possess the same resolution, calibration, or diagnostic capabilities as hospital-based radiology reading stations, and formal radiologist read is necessary. Signature :Aubrie Casas
--- NOTE | 2025-04-13 20:50 | ESHP_ITS ---
<Statement entered by Avery Cedeno MD - 04/14/25 05:48> I have discussed and was present for the essential components of the history, physical examination, diagnosis, and treatment plan with the resident. I agree with the patient's care as documented by the resident and amended herein by me. Avery Cedeno MD FACP. 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 Dick, for evaluation of persistent dizziness and blurred vision following cardiac catheterization and angiogram 3 days ago. The patient describes lightheadedness, worse with standing, and reports being unable to walk without assistance due to the sensation of imminent falling. He denies any history of similar symptoms, headache, or falls. The patient mentions that he was instructed to hold Eliquis prior to the procedure and has since restarted the medication. No other associated symptoms, such as chest pain, shortness of breath, or syncope, are reported. ED course: The patient?s initial vitals were stable: temperature 98.8?F, heart rate 88 bpm, blood pressure 134/84 mmHg, respiratory rate 18, and oxygen saturation 96% on room air. Laboratory results revealed hemoglobin 17.7, WBC 11.1, creatinine 1.1, potassium 3.8, and magnesium 1.9, with liver function tests within normal limits. A CT head scan showed hypoattenuation in the posterior right occipital lobe, with no evidence of acute ischemic infarction, hemorrhage, mass, or midline shift. Brain MRI demonstrated acute infarcts in the right basal ganglia, right caudate nucleus, posterior right corpus callosum, and posterior right parietal lobe, suggesting an ischemic event. EKG showed atrial fibrillation with a ventricular rate of 98 bpm and a QTc interval of 475 ms. Past medical history: As stated above. Allergies: NKDA Family history: Noncontributory. Social history: No alcohol use, no smoking, no illicit drug use. Patient admitted for lucretia-procedural stroke. Review of Systems Review of Systems Narrative Review of Systems: All systems reviewed negative unless stated otherwise above. Exam Vital Signs Temp Pulse Resp BP Pulse Ox O2 Del Method 98.1 F 93 16 119/103 H 95 Room Air 04/13/25 19:28 04/13/25 19:32 04/13/25 19:28 04/13/25 19:32 04/13/25 19:28 04/13/25 19:28 Narrative Exam General: Alert, no acute distress. [place] speaking. Skin: Warm, dry, intact, no obvious rash. Head: Normocephalic, atraumatic. Eye: Normal conjunctiva, PERRL. Throat: Oral mucosa dry. No obvious lesions in oropharynx. Cardiovascular: Known afib, no murmur, +S1/S2. Respiratory: Lungs are clear to auscultation, respirations unlabored, no crackles, no wheezing. Gastrointestinal: Soft, nontender, distended. No guarding or rebound tenderness. Extremities: No edema, no cyanosis, no clubbing. 2+ radial pulse bilaterally, 2+ pedal pulse bilaterally. Psychiatric: Cooperative, appropriate affect. Neurologic: Mental status: Alert Orientation: Oriented to person, place, time, and situation Communication: Patient is cooperative and can follow simple instructions Language: Speech fluent, normal rate and volume, comprehension intact Cranial nerves: CN II: Visual pearson intact CN III: Pupils equal, round, and reactive to light CN III, IV, : No gaze deviation, no nystagmus Horizontal pursuit: intact Vertical pursuit: intact Ptosis: none CN V: Facial sensation to light touch intact bilaterally at the forehead, cheeks, and jaw line CN VII: Face symmetric, no facial droop appreciated CN VIII: Able to hear and respond to conversation at normal volume, intact to finger rub CN IX, X: Palate elevation symmetric, uvula midline CN XI: Head turn and shoulder shrug strong, symmetric bilaterally CN XII: Normal tongue protrusion without deviation, no fasciculations Motor: Normal bulk and tone No atrophy Muscle strength: RUE: 5/5 LUE: 5/5 RLE: 5/5 LLE: 5/5 Sensory: RUE: Light touch intact LUE: Light touch intact RLE: Light touch intact LLE: Light touch intact Reflexes: Biceps (C5-6): R 2+ L 2+ Brachioradialis (C5-6): R 2+ L 2+ Triceps (C7-8): R 2+ L 2+ Patellae (L3-4): R 2+ L 2+ Achilles (S1-2):R 2+ L 2+ Results: Labs 04/13/25 16:39 04/13/25 16:39 Labs: Short CBC 04/13/25 Range/Units 16:39 WBC 11.1 H (3.8-10.6) Thou/mm3 Hgb 17.7 H* (13.5-16.0) g/dL Hct 53.5 H (41.0-53.0) % Plt Count 193 (140-440) Thou/mm3 BMP 04/13/25 16:39 Sodium 145 Potassium 3.8 Chloride 109 H Carbon Dioxide 24.5 BUN 12 Creatinine 1.1 Glucose 114 H Calcium 9.3 Cardiac Enzymes 04/13/25 Range/Units 16:39 Troponin I < 0.020 (0.0-0.045) ng/mL Liver Function 04/13/25 Range/Units 16:39 Total Bilirubin 0.7 (0.3-1.2) mg/dL AST 30 (0-34) U/L ALT 25 (10-49) U/L Alkaline Phosphatase 80 (46-116) U/L Albumin 4.5 (3.4-4.8) gm/dL Urine 04/13/25 Range/Units 17:00 Urine Color Yellow (Lt Yel-Yel) Urine Clarity Hazy (Clear/Hazy) Urine pH 5.5 (5.0-7.0) Ur Specific [place] 1.036 H (1.001-1.035) Urine Protein 1+ A (Neg - Trace) Urine Glucose (UA) 4+ A (Negative) Quality Measures Quality Measures none Advance care planning discussed with:: patient Medications Home Medications and Allergies Home Medications ?Medication ?Instructions ?Recorded ?Confirmed ?Type metoprolol succinate 100 mg 100 mg PO QDAY 04/10/25 History capsule sprinkle, ext. release 24 hr Allergies Allergy/AdvReac Type Severity Reaction Status Date / Time No Known Allergies Allergy Verified 04/13/25 16:05 Visit Medications Acetaminophen (Acetaminophen 325 Mg Tablet) 650 mg PO Q6H PRN PRN Reason: PAIN 1-3 OR FEVER > 101 Stop: 05/13/25 20:31 Apixaban (Apixaban 2.5 Mg Tablet) 5 mg PO BID [place] Stop: 05/13/25 20:59 Atorvastatin Calcium (Atorvastatin Calcium 20 Mg Tablet) 40 mg PO HS [place] Stop: 05/13/25 20:59 Dextrose (Dextrose 50%-Water Inj 50 Ml Syringe) 25 ml IV Q15MIN PRN PRN Reason: BG 50-70 responsive npo pt Stop: 05/13/25 20:39 Dextrose (Dextrose 50%-Water Inj 50 Ml Syringe) 50 ml IV Q15MIN PRN PRN Reason: BG <50 OR BG <70 & pt unresponsive Stop: 05/13/25 20:39 Diltiazem HCl (Diltiazem Er 90 Mg Er Capsule) 60 mg PO Q12HR [place] Stop: 05/13/25 20:59 Glucagon (Glucagon Inj 1 Mg Vial) 1 mg IM Q15MIN PRN PRN Reason: BG <70, and no IV access Sodium Chloride (Ns) 1,000 mls @ 100 mls/hr IV Q10H [facility] Stop: 05/13/25 18:59 Last Admin: 04/13/25 19:30 Dose: 100 mls/hr Insulin Human Lispro (Insulin Lispro (Admelog) 1 Unit/0.01 Ml Unit) 0 unit SC AC [facility]; Protocol Stop: 05/14/25 07:29 Labetalol HCl (Labetalol Inj 5 Mg/Ml Vial 20 Ml) 10 mg IVP Q15M PRN PRN Reason: HYPER Metoprolol Succinate (Metoprolol Succinate Xl 25 Mg Tabcr) 100 mg PO QDAY [facility] Stop: 05/13/25 20:44 Pantoprazole Sodium (Pantoprazole Inj 40 Mg Vial) 40 mg IVP QDAY [place] Stop: 05/13/25 20:59 Assessment & Plan Plan 69-year-old male with a history of CAD, status post-CABG, atrial fibrillation, hypertension, and T2DM, presented to ED referred by 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 Dick, for evaluation of persistent lightheadedness and blurred vision following cardiac cath and angio 04/09. Patient admitted for lucretia-procedural stroke. #CVA, lucretia-procedural stroke #Right basal ganglia #Right caudate nucleus #Posterior right corpus callosum #Posterior right parietal lobe Main symptoms were blurred vision and persistent lightheadedness for the past 3 days following cardiac catheterization performed 04/09 Patient denies headache, speech changes, numbness, weakness, or falls CT head scan showed hypoattenuation in the posterior right occipital lobe, with no evidence of acute ischemic infarction, hemorrhage, mass, or midline shift. Brain MRI demonstrated acute infarcts in the right basal ganglia, right caudate nucleus, posterior right corpus callosum, and posterior right parietal lobe, suggesting an ischemic event. NIHSS score 1 Teleneurologist mentioned patient does not require further evaluation into the stroke mechanism as the mechanism is known, and to restart home meds Plan ? Neurology consulted, Dr. Ly, for further management and assessment ? CT angio carotid ordered ? Bedside swallow eval followed by p.o. meds ? Restarted aspirin 81 mg daily, apixaban 5 mg twice daily, atorvastatin 40 mg daily per teleneurologist recommendation ? Physical therapy consulted ? Neurochecks every 4 hours to monitor for any changes in neurological status. #Chronic A-fib [id number]: 4 Rate: Controlled Rhythm: Irregular AC: Eliquis 5 mg twice daily Takes diltiazem HCl 60 mg extended release every 12 hours Takes metoprolol succinate 100mg daily Plan ? Diltiazem 30 mg 4 times daily as pharmacy does not have extended release ? Restarted metoprolol succinate 100 mg daily ? Keep magnesium greater than 2 and potassium greater than 4 #Type 2 diabetes, [id number] Plan ? Pending med recon ? Insulin sliding scale ? Hypoglycemic protocol in place ? A1c in a.m. #CAD, mild to mod #Status post CABG Follows Dr. Dick, Last seen 04/09 04/09: Left heart and right heart cardiac catheterization including right, left coronary angiograms and left ventriculogram LVEF normal at 55 to 60% Plan ? Follow-up outpatient, Dr. Dick #Polycythemia Hgb 17.7 on admission, has been chronically elevated since 2022 Plan ? Consider outpatient hematology referral #Hypertension Plan ? Pending med recon Health Maintenance: Diet: Low carb consistent diet after passing swallow eval GI prophylaxis: Protonix 40 daily DVT prophylaxis: Eliquis 5 mg twice daily Antibiotics: None CODE STATUS: DNR Disposition: Telemetry Case discussed with my attending Dr. Cedeno, and senior resident, Dr. Juana Joya MD PGY-1
[2025-04-13] MEDS: ATORVASTATIN CALCIUM 20 MG TABLET 40 MG PO (21:03)
[2025-04-13] MEDS: APIXABAN 2.5 MG TABLET 5 MG PO (21:03)
[2025-04-13] MEDS: METOPROLOL SUCCINATE XL 25 MG TABCR 100 MG PO (21:03)
[2025-04-13] MEDS: Magnesium Sulfate 4 GM Ivpb 4 GM/50 ML BAG IV (21:59)
--- NOTE | 2025-04-13 22:34 | XR_ITS ---
Examination: CTA carotids with intravenous contrast CTA brain, head with intravenous contrast. 2-D sagittal, coronal reconstructions. 3-D reconstructions. Exam date and time: 04/14/2025, 2:35 a.m. INDICATION: Possible stroke COMPARISON: Brain MRI 04/13/2025, noncontrast head CT 04/13/2025 CTDI: vol (mGy) 224.61 DLP: (mGycm) 716 Technique: Multiple CTA axial brain, head carotid images post intravenous contrast injection 70 cc, [id number]. 2-D sagittal, coronal reconstructions. 3-D reconstructions, 3-D post processing including vascular maximum intensity projection images. Low dose protocols were performed. One or more of the following dose reduction techniques were used; automated exposure control, adjustment of the mA and/or KV according to patient size, use of iterative reconstruction technique. Findings: CTA NECK: The bilateral carotid arteries are patent and well-opacified. There is mixed calcified and noncalcified plaque at the carotid bulbs and proximal ICAs without hemodynamically significant stenosis. No carotid artery dissection or occlusion. Bilateral carotid arteries are tortuous. Normal variant origin of the left common carotid artery from the brachiocephalic trunk. Partially imaged aneurysmal ascending aorta measuring approximate 4 cm in caliber. Remote CABG changes are present. The left vertebral artery is dominant, and widely patent without evidence for significant stenosis, dissection or occlusion. There is prominent calcified and noncalcified plaque in the proximal right vertebral artery which appears to show severe stenosis over a short segment. The remainder of the right vertebral artery is well opacified without additional significant stenosis, dissection or occlusion. CTA HEAD: There is moderate calcific plaque throughout the bilateral carotid arteries, most pronounced at the cavernous segments. Mildly smaller caliber of the right ICA is perceived compared to the contralateral ICA but otherwise there is no apparent severe focal stenosis of either internal carotid artery, and no evidence for occlusion or aneurysm. The bilateral ACAs, MCAs, banquet server on call, distal vertebral arteries and basilar artery are well opacified without apparent significant stenosis, occlusion or aneurysm formation. Patent dural venous sinuses. Hypoattenuation consistent with recent ischemic infarct on MRI is present adjacent to the posterior half of the right lateral ventricle involving the caudate nucleus, and also seen in the posterior aspect of the corpus callosum on the right side. No evidence for hemorrhagic transformation. Chronic infarct sequela is reidentified in the right occipital lobe. No evidence of intracranial hemorrhage. No intracranial mass or evidence of mass-effect. No midline shift or herniation. No extra-axial collections. The ventricles and sulci are prominent, compatible with age-related parenchymal volume loss. IMPRESSION: Negative CTA neck for hemodynamically significant stenosis, dissection, or occlusion of the bilateral carotid arteries or the left vertebral artery. Severe stenosis of the proximal right vertebral artery. CTA head shows plaque throughout the bilateral ICAs without apparent severe stenosis, and no occlusion or aneurysm formation. The remaining major arteries of the anterior and posterior intracranial circulation are widely patent and well-opacified. Recent ischemic infarcts involving the right side of the caudate nucleus and splenium of the corpus callosum. No acute intracranial hemorrhage.
[2025-04-14] VITALS (8 sets, daily range): BP systolic 118–142; BP diastolic 69–105; PULSE 62–104; RESP 16–21; TEMP 36–36.6; O2SAT 93–98; BMI 40.8
--- NOTE | 2025-04-14 03:19 | PRELIM_ITS ---
CT angiogram of the head and neck with intravenous contrast (axial sections with sagittal and coronal reformats). April 14, 2025 0230 hours Clinical History: stroke Comparison: None Findings: There is atherosclerotic calcification along the thoracic aorta and great vessels. There is a bovine aortic arch configuration. Atherosclerotic calcification along the cervical carotid circulation results in less than 50% stenosis per NASCET criteria, which is [id number]. There is mild genera lized narrowing of the cervical right internal carotid artery which is nonflow limiting. There is severe flow-limiting stenosis at the origin of the cervical vertebral arteries bilaterally due to atherosclerotic plaque/calcification The cervical vertebral arteries are otherwise intact without flow-limiting stenosis. There is no aneurysm or dissection of the cervical carotid or cervical vertebral circulation. Bilateral parotid hypertrophy is likely related to obesity. The intracranial vertebral arteries are intact without flow-limiting stenosis. The basilar artery is intact without flow-limiting stenosis. The posterior cerebral arteries are intact without flow-limiting stenosis. There is atherosclerotic calcification along the carotid siphons and supraclinoid int ernal carotid arteries which is [id number]. The anterior and middle cerebral arteries are intact without flow-limiting stenosis. There is no intracranial aneurysm or AVM. Impression: 1. Severe flow-limiting stenosis at the origin of the cervical vertebral arteries. Otherwise no flow-limiting stenosis, aneurysm or dissection of the cervical carotid or cervical vertebral circulation. 2. No intracranial major proximal vessel occlusion, flow-limiting stenosis, aneurysm or AVM. Report Electronically Signed By: Josef Anna 04/14/2025 3:19:11 AM [EST]
[2025-04-14 06:49] LABS: Glucose Estimated Average 134 mg/dL (80-131); Hemoglobin A1C 6.3 % Hgb (4.8-6.0)
[2025-04-14 06:50] LABS: Alanine Aminotransferase 20 U/L (10-49); Albumin, Serum 3.9 gm/dL (3.4-4.8); Albumin/Globulin Ratio 1.6 (1.2-2.2); Alkaline Phosphatase 67 U/L (46-116); Anion Gap 8 (7-16); Aspartate Amino Transferase 24 U/L (0-34); BUN/Creatinine Ratio 11 Ratio (12-20); Bilirubin,Total 0.9 mg/dL (0.3-1.2); Blood Urea Nitrogen 11 mg/dL (9-23); Calcium 8.5 mg/dL (8.3-10.6); Calcium (Corrected) 8.6 mg/dL (8.5-10.1); Carbon Dioxide 26.0 mMol/L (20.0-31.0); Cardiac Risk Estimate 2.8 RATIO (4.0-6.7); Chloride 109 mMol/L (98-107); Cholesterol 99 mg/dL (132-200); Creatinine (Component) 1.0 mg/dL (0.6-1.3); Estimated Creatinine Clearance 91.5 mL/min (>60); Globulin 2.5 gm/dL (2.3-3.5); Glucose 99 mg/dL (74-106); HDL Cholesterol 36 mg/dL (40-60); LDL Cholesterol,Calculated 35 mg/dL (0-130); Magnesium 2.5 mg/dL (1.6-2.6); Osmolality,Calculated 284 (275-295); Phosphorous 3.9 mg/dL (2.4-5.1); Potassium 4.4 mMol/L (3.4-5.1); Sodium 143 mMol/L (136-145); Thyroid Stimulating Hormone 2.17 uIU/mL (0.55-4.78); Total Protein 6.4 gm/dL (5.7-8.2); Triglycerides 138 mg/dL (30-150); eGFR > 60 See Note
[2025-04-14] MEDS: DILTIAZEM CD 120 MG CAPCR PO (08:51)
[2025-04-14] MEDS: METOPROLOL SUCCINATE XL 25 MG TABCR 100 MG PO (08:52)
[2025-04-14] MEDS: APIXABAN 2.5 MG TABLET 5 MG PO ×2 (08:52→20:20)
[2025-04-14] MEDS: ASPIRIN EC 81 MG TABEC PO (08:53)
[2025-04-14 09:31] LABS: Basophils # (Auto) 0.0 Thou/mm3 (0.0-0.2); Basophils % (Auto) 0 % (0-2.5); Eosinophils # (Auto) 0.2 Thou/mm3 (0.0-0.5); Eosinophils % (Auto) 2 % (0-10); Hematocrit 49.7 % (41.0-53.0); Hemoglobin 16.3 g/dL (13.5-16.0); Immature Granulocytes Auto 0.03 Thou/mm3 (0.00-0.00); Lymphocytes # (Auto) 3.0 Thou/mm3 (1.0-4.8); Lymphocytes % (Auto) 30 % (10-50); Mean Corpuscular HGB Conc 32.8 g/dl (31.0-37.0); Mean Corpuscular Hemoglobin 29.6 pg (25.0-35.0); Mean Corpuscular Volume 90 fL (80-100); Monocytes # (Auto) 0.8 Thou/mm3 (0.0-0.8); Monocytes % (Auto) 8 % (0-12); Neutrophils # (Auto) 5.8 Thou/mm3 (1.8-7.7); Neutrophils % (Auto) 59 % (37-80); Nucleated Red Blood Cell # 0.00 Thou/mm3 (0.00-0.00); Nucleated Red Blood Cell % 0 /100 WBC (0); Platelet Count 156 Thou/mm3 (140-440); RDW Standard Deviation 45.2 fL (35.1-43.9); Red Blood Count 5.50 Miln/mm3 (4.50-5.90); White Blood Count 9.9 Thou/mm3 (3.8-10.6)
--- NOTE | 2025-04-14 09:53 | PC.SS ---
Patient Guille Aguilar is a 69 Year old male admitted for CVA. SS contacted patient's son Jayant Prince via phone to review and verify demographic information and discharge plan. Jayant reports patient lives at home with him and his . He reports he is patients surrogate decision maker, [phone]. Patient's son reports patient utilized a FWW prior to admission. Patient was also able to complete all ADL's independently. Choice of pharmacy is [facility]. Patient's son reports patient's PCP is Dr. Marroquin. Patient's son reports at time of discharge patient will return back home. Family will provide transportation. Discharge plan: Home Next of kin: Son Jayant Prince
--- NOTE | 2025-04-14 13:44 | PD.RESCONSUL ---
HPI Data of Consult Requesting Physician: Keith Graham MD Admitting Provider: Avery Cedeno MD Attending Provider: Keith Graham MD Primary Care Provider: Physician No Primary/Family Consult Narrative History of present illness: Patient is 69-year-old male with past medical history significant for coronary artery disease status post double bypass on 06/2022 on aspirin, history of A-fib on Eliquis, hypertension and hyperlipidemia. Patient had outpatient ischemic cardiac workup, NST showed abnormal myocardial perfusion study and with decreased uptake in the inferior lateral segment of LV with stress and improved with rest indicating ischemia. With EF of 31%. Given the abnormal stress test, LHC with bypass angiogram were performed on 04/10/2025 which showed mild to moderate coronary artery disease. Left main artery with mild diffuse stenosis, patent bypass graft ASHBY to LAD, 50-60% stenosis of ostial diagonal 1, mild difuse disease of LCx, 70-80% stenosis of proximal OM1, 100% occluded bypass grafts Radial artery to Diagonal 1. Rest of the coronary branches with no significant angiographic disease. LVEF is normal at 55-60%. Normal LVEDP at 8 mmHg. There was no significant transvalvular aortic gradient. Patient was monitored in Cardiac Election Clerk for couple of hours and safely discharged home recommended to continue aggressive medical management and aggressive risk factor modification. However on 04/13/2025 patient presented to office for cardiology follow-up. The patient presented with complaints of visual disturbances and mild imbalance. Upon arrival at the clinic, the patient was using a walker, and physical examination confirmed the presence of imbalance. Given the patient's age, history of atrial fibrillation, recent withholding of Eliquis prior to the procedure, and the nature of the procedure itself, the patient is considered to be at high risk for a stroke. The patient was advised to seek evaluation in the emergency department for further stroke workup. An MRI was performed, revealing an acute infarct in the right basal ganglia, right caudate nucleus, posterior right corpus callosum, and posterior right parietal lobe, consistent with an ischemic event. Cardiology was consulted for ongoing management and care. Past medical history: As above Social history: No tobacco use, denied current drinking, denied current use of drugs. Surgical history: Positive for appendectomy and hernia repair Family history: Diabetes in mother Patient is not taking any medications at home. Reported no known allergies. cc:: cc: Keith Graham MD Review of Systems Review of Systems Systems Reviewed: All systems reviewed, normal except as documented Exam Vital Signs Temp Pulse Resp BP Pulse Ox O2 Del Method 97.8 F 70 16 139/105 H 95 Room Air 04/14/25 12:00 04/14/25 12:00 04/14/25 12:00 04/14/25 12:00 04/14/25 12:00 04/14/25 08:00 Narrative Exam GENERAL: no acute distress, AAO x3, well nourished. HEENT: Head AT/ NC. Mucous membranes moist. PERRL. NECK: Supple, no lymphadenopathy, no carotid bruits. CARDIOVASCULAR: RRR. Normal S1/S2, No m/r/g. No pitting edema of bilateral LEs. RESPIRATORY: CTAB. No wheezing, rhonchi, crackles. GASTROINTESTINAL: Abdomen soft, non tender no palpable masses. Bowel sounds present in all 4 quadrants. MUSCULOSKELETAL:? No cyanosis or edema, no visible joint swelling. NEUROLOGICAL: CN II-XII grossly intact. No focal deficits. gait unsteady with closed eyes. loses balance during Romberg testing PSYCHIATRIC: Awake and alert, not agitated, normal mood and affect. INTEGUMENTARY: No obvious rashes, no jaundice, normal turgor. Results Labs 04/14/25 04:37 04/14/25 04:37 Labs: Short CBC 04/13/25 04/14/25 Range/Units 16:39 04:37 WBC 11.1 H 9.9 (3.8-10.6) Thou/mm3 Hgb 17.7 H* 16.3 H (13.5-16.0) g/dL Hct 53.5 H 49.7 (41.0-53.0) % Plt Count 193 156 D (140-440) Thou/mm3 BMP 04/13/25 04/14/25 16:39 04:37 Sodium 145 143 Potassium 3.8 4.4 D Chloride 109 H 109 H Carbon Dioxide 24.5 26.0 BUN 12 11 Creatinine 1.1 1.0 Glucose 114 H 99 Calcium 9.3 8.5 Cardiac Enzymes 04/13/25 Range/Units 16:39 Troponin I < 0.020 (0.0-0.045) ng/mL Liver Function 04/13/25 04/14/25 Range/Units 16:39 04:37 Total Bilirubin 0.7 0.9 (0.3-1.2) mg/dL AST 30 24 (0-34) U/L ALT 25 20 (10-49) U/L Alkaline Phosphatase 80 67 (46-116) U/L Albumin 4.5 3.9 D (3.4-4.8) gm/dL Urine 04/13/25 Range/Units 17:00 Urine Color Yellow (Lt Yel-Yel) Urine Clarity Hazy (Clear/Hazy) Urine pH 5.5 (5.0-7.0) Ur Specific [place] 1.036 H (1.001-1.035) Urine Protein 1+ A (Neg - Trace) Urine Glucose (UA) 4+ A (Negative) Quality Measures Quality Measures none Advance care planning discussed with:: patient Medications Home Medications and Allergies Home Medications ?Medication ?Instructions ?Recorded ?Confirmed ?Type metoprolol succinate 100 mg 100 mg PO QDAY 04/10/25 04/13/25 History capsule sprinkle, ext. release 24 hr Allergies Allergy/AdvReac Type Severity Reaction Status Date / Time No Known Allergies Allergy Verified 04/13/25 16:05 Visit Medications Acetaminophen (Acetaminophen 325 Mg Tablet) 650 mg PO Q6H PRN PRN Reason: PAIN 1-3 OR FEVER > 101 Stop: 05/13/25 20:31 Apixaban (Apixaban 2.5 Mg Tablet) 5 mg PO BID CHELE Stop: 05/13/25 20:59 Last Admin: 04/14/25 08:52 Dose: 5 mg Aspirin (Aspirin Ec 81 Mg Tabec) 81 mg PO QDAY CHELE Stop: 05/14/25 08:59 Last Admin: 04/14/25 08:53 Dose: 81 mg Atorvastatin Calcium (Atorvastatin Calcium 20 Mg Tablet) 40 mg PO HS CHELE Stop: 05/13/25 20:59 Last Admin: 04/13/25 21:03 Dose: 40 mg Dextrose (Dextrose 50%-Water Inj 50 Ml Syringe) 25 ml IV Q15MIN PRN PRN Reason: BG 50-70 responsive npo pt Stop: 05/13/25 20:39 Dextrose (Dextrose 50%-Water Inj 50 Ml Syringe) 50 ml IV Q15MIN PRN PRN Reason: BG <50 OR BG <70 & pt unresponsive Stop: 05/13/25 20:39 Diltiazem HCl (Diltiazem Cd 120 Mg Capcr) 120 mg PO DAILY [facility] Stop: 05/14/25 08:59 Last Admin: 04/14/25 08:51 Dose: 120 mg Glucagon (Glucagon Inj 1 Mg Vial) 1 mg IM Q15MIN PRN PRN Reason: BG <70, and no IV access Insulin Human Lispro (Insulin Lispro (Admelog) 1 Unit/0.01 Ml Unit) 0 unit SC AC [facility]; Protocol Stop: 05/14/25 07:29 Last Admin: 04/14/25 11:38 Dose: Not Given Labetalol HCl (Labetalol Inj 5 Mg/Ml Vial 20 Ml) 10 mg IVP Q15M PRN PRN Reason: HYPER Metoprolol Succinate (Metoprolol Succinate Xl 25 Mg Tabcr) 100 mg PO QDAY [facility] Stop: 05/13/25 20:44 Last Admin: 04/14/25 08:52 Dose: 100 mg Pantoprazole Sodium (Pantoprazole Inj 40 Mg Vial) 40 mg IVP QDAY CHELE Stop: 05/13/25 20:59 Last Admin: 04/14/25 08:53 Dose: 40 mg Discontinued Medications Sodium Chloride (Ns) 1,000 mls @ 100 mls/hr IV Q10H [facility] Stop: 05/13/25 18:59 Last Admin: 04/13/25 19:30 Dose: 100 mls/hr Magnesium Sulfate (Magnesium Sulfate Ivpb) 4 gm in 50 mls @ 12.5 mls/hr IV X1 ONE Stop: 04/14/25 01:24 Last Admin: 04/13/25 21:59 Dose: 12.5 mls/hr Potassium Chloride (Potassium Chloride 20 Meq Tabcr) 40 meq PO X1 ONE Stop: 04/13/25 21:26 Last Admin: 04/13/25 21:58 Dose: 40 meq Assessment & Plan Plan 69-year-old male with a history of CAD, status post-CABG, atrial fibrillation, hypertension, and T2DM, presented to ED referred by his special library librarian, Dr. Dick, for evaluation of persistent lightheadedness and blurred vision given the high risk of stroke #Acute stroke with acute infarct Right caudate nucleus, Posterior right corpus callosum and posterior right parietal lobe Differential diagnosis includes recent stopping of anticoagulants for the left heart cardiac catheterization with history of A-fib, advanced age, possible hyperviscosity along with periprocedural complications. The patient presented with complaints of visual disturbances and mild imbalance. Upon arrival at the clinic, the patient was using a walker, and physical examination confirmed the presence of imbalance. -Restarted Aspirin 81 mg daily -Restarted Apixaban 5 mg twice daily -Restarted Atorvastatin 40 mg daily (per teleneurologist recommendation). -Physical Therapy -Neurochecks - Neurology was consulted by primary team and will await final recs from them Patient will need physical therapy as outpatient #Chronic persistent Atrial Fibrillation: Patient does have a longstanding history of atrial fibrillation and he recently started following up in the office. He does have a history of CAD and CABG and as well as dilated atria and along with advanced age with obesity and probable sleep apnea puts him at higher risk of atrial fibrillation. [id number]: 4 Rate: Controlled -Current Medications:Eliquis 5 mg twice daily, Metoprolol succinate 100 mg daily -Electrolyte Monitoring: Ensure magnesium levels remain >2 and potassium levels >4. -follow up woutpatient with #CAD status post CABG in 2022 with ASHBY to LAD as well as left radial to diagonal. # Last cardiac catheterization April 10, 2025 showed moderate residual CAD #Hypertension Patient had outpatient ischemic cardiac workup, NST showed abnormal myocardial perfusion study and since there was a decreased uptake in the inferior lateral segment of LV with stress and improved with rest indicating ischemia low EF. Given the abnormal stress test, LHC with bypass angiogram were performed on 04/10/2025 which showed mild to moderate coronary artery disease. Left main artery with mild diffuse stenosis Left main artery with mild diffuse stenosis, patent bypass graft ASHBY to LAD, 50-60% stenosis of ostial diagonal 1, mild difuse disease of LCx, 70-80% stenosis of proximal OM1, 100% occluded bypass grafts Radial artery to Diagonal 1. Rest of the coronary branches with no significant angiographic disease. LVEF is normal at 55-60%. Normal LVEDP at 8 mmHg. There was no significant transvalvular aortic gradient. Patient was monitored in Cardiac Election Clerk for couple of hours and safely discharged home recommended to continue aggressive medical management and aggressive risk factor modification. -continue medication -continue aggressive medical management and aggressive risk factor modification. chronic conditions #Polycythemia #diabetes mellitus type II # Obesity # Questionable sleep apnea to be managed by primary team Patient care was discussed with attending physician Dr. Kapil Fontanez MD PGY-3 I have carefully reviewed this document. Due to imperfections in the voice software, there could be grammatical errors including phonetic/typographic errors. This in no way compromises the medical care the patient is receiving Attending Provider Attestation/Addendum I have personally seen and examined the patient separately on the above date of service and discussed the plan of care with the resident. I reviewed the resident Dr. Ryanne Chen / Candy Peña consultation progress note and agree with the resident findings and plan in the note above and have also edited the documentation to reflect my findings and plan. Myles Dick M.D. Interventional Cardiology
--- NOTE | 2025-04-14 14:31 | ESPR_ITS ---
<Statement entered by Nat Robertson MD - 04/15/25 07:53> Patient was seen and examined by me personally. I have directly supervised and reviewed documentation by the team resident and agree with its findings with any exceptions or additional findings as below. Plan of care was discussed with the attending, Dr. Graham. Nat Robertson, PGY-3 Documentation for date of: 04/14/25 Subjective Subjective Interval history: Seen patient today, he reports persistent blurry vision, unchanged since the procedure, with no new dizziness, weakness, headache, or speech changes. Denies chest pain, shortness of breath, palpitations, or syncope. He is ambulatory with support but requires assistance to stand. He has had urination without difficulty but no bowel movements since admission. Appetite is fair, with minimal intake. He is requesting discharge today after being cleared by PT, and is awaiting neuro clearance. Exam Vital Signs Temp Pulse Resp BP Pulse Ox O2 Del Method 97.8 F 70 16 139/105 H 95 Room Air 04/14/25 12:00 04/14/25 12:00 04/14/25 12:00 04/14/25 12:00 04/14/25 12:00 04/14/25 08:00 Narrative Exam General: Alert, cooperative, in no acute distress. Neuro: Alert and oriented ?3. Cranial nerves grossly intact. Mild blurry vision, no diplopia, no focal motor deficits. Cardiovascular: RRR, S1/S2 present, no murmurs. Respiratory: Clear to auscultation bilaterally, no wheezing or crackles. Gastrointestinal: Soft, non-distended, non-tender. Extremities: No edema, 2+ distal pulses bilaterally. Psychiatric: Normal mood and affect. Objective Labs 04/15/25 05:45 04/15/25 05:45 Labs: Laboratory Results - last 24 hr 04/13/25 04/13/25 04/14/25 16:39 17:00 04:37 WBC 11.1 H 9.9 RBC 5.98 H 5.50 Hgb 17.7 H* 16.3 H Hct 53.5 H 49.7 MCV 90 90 MCH 29.6 29.6 MCHC 33.1 32.8 RDW Std Deviation 43.6 45.2 H Plt Count 193 156 D Neut % (Auto) 61 59 Lymph % (Auto) 30 30 Baker % (Auto) 7 8 Eos % (Auto) 1 2 Baso % (Auto) 0 0 Neut # (Auto) 6.8 5.8 Lymph # (Auto) 3.4 3.0 Baker # (Auto) 0.8 0.8 Eos # (Auto) 0.1 0.2 Baso # (Auto) 0.0 0.0 Immature Gran # (Auto) 0.04 H 0.03 H Absolute Nucleated RBC 0.00 0.00 Immature Gran % 0 0 Nucleated RBC % 0 0 PT 11.8 INR 1.1 APTT 44.0 H Sodium 145 143 Potassium 3.8 4.4 D Chloride 109 H 109 H Carbon Dioxide 24.5 26.0 Anion Gap 12 8 BUN 12 11 Creatinine 1.1 1.0 Estim Creat Clear Calc 82.8 91.5 eGFR > 60 > 60 BUN/Creatinine Ratio 11 L 11 L Glucose [address] Glu mg/dL 134 H Hemoglobin A1c 6.3 H Calculated Osmolality 289 284 Calcium 9.3 8.5 Corrected Calcium 9.3 8.6 Phosphorus 3.9 Magnesium 1.9 2.5 Total Bilirubin 0.7 0.9 AST 30 24 ALT 25 20 Alkaline Phosphatase 80 67 Troponin I < 0.020 B-Natriuretic Peptide 97 Total Protein 7.6 6.4 Albumin 4.5 3.9 D Globulin 3.1 2.5 Albumin/Globulin Ratio 1.5 1.6 Triglycerides 138 Cholesterol 99 L LDL Cholesterol, Calc 35 HDL Cholesterol 36 L Cholesterol/HDL Ratio 2.8 L Lipase 40 TSH 2.17 Ur Collection Type Clean Catch Urine Color Yellow Urine Clarity Hazy Urine pH 5.5 Ur Specific [place] 1.036 H Urine Protein 1+ A Urine Glucose (UA) 4+ A Urine Ketones Negative Urine Blood Negative Urine Nitrite Negative Urine Bilirubin Negative Urine Urobilinogen (Auto) Negative Ur Leukocyte Esterase Negative Urine RBC 3 Urine WBC 2 Ur Squamous Epith Cells < 1 Ur Transition Epith Cell < 1 Urine Bacteria None Hyaline Casts < 1 Ur Culture Indicated? Not Indicated Urine Opiates Screen Negative Urine Fentanyl Screen Positive A Ur Barbiturates Screen Negative U Amphetamin/Meth Scrn Negative U Benzodiazepines Scrn Positive A U Cocaine Metab Screen Negative U Marijuana (THC) Screen Negative Ethyl Alcohol < 3.0 Quality Measures Quality Measures none Advance care planning discussed with:: patient Assessment & Plan Assessment Current Active Medications: Generic Name Dose Route Start Last Admin Trade Name Freq PRN Reason Stop Dose Admin Acetaminophen 650 mg 04/13/25 20:32 Acetaminophen 325 Mg Tablet PO 05/13/25 20:31 Q6H PRN PAIN 1-3 OR FEVER > 101 Apixaban 5 mg 04/13/25 21:00 04/14/25 08:52 Apixaban 2.5 Mg Tablet PO 05/13/25 20:59 5 mg BID CHELE Administration Aspirin 81 mg 04/14/25 09:00 04/14/25 08:53 Aspirin Ec 81 Mg Tabec PO 05/14/25 08:59 81 mg QDAY CHELE Administration Atorvastatin Calcium 40 mg 04/13/25 21:00 04/13/25 21:03 Atorvastatin Calcium 20 Mg Tablet PO 05/13/25 20:59 40 mg HS CHELE Administration Dextrose 25 ml 04/13/25 20:40 Dextrose 50%-Water Inj 50 Ml Syringe IV 05/13/25 20:39 Q15MIN PRN BG 50-70 responsive npo pt Dextrose 50 ml 04/13/25 20:40 Dextrose 50%-Water Inj 50 Ml Syringe IV 05/13/25 20:39 Q15MIN PRN BG <50 OR BG <70 & pt unresponsive Diltiazem HCl 120 mg 04/14/25 09:00 04/14/25 08:51 Diltiazem Cd 120 Mg Capcr PO 05/14/25 08:59 120 mg DAILY CHELE Administration Glucagon 1 mg 04/13/25 20:40 Glucagon Inj 1 Mg Vial IM Q15MIN PRN BG <70, and no IV access Insulin Human Lispro 0 unit 04/14/25 07:30 04/14/25 11:38 Insulin Lispro (Admelog) 1 Unit/0.01 Ml Unit SC 05/14/25 07:29 Not Given AC [facility] Protocol Labetalol HCl 10 mg 04/13/25 18:56 Labetalol Inj 5 Mg/Ml Vial 20 Ml IVP Q15M PRN HYPER Metoprolol Succinate 100 mg 04/13/25 20:45 04/14/25 08:52 Metoprolol Succinate Xl 25 Mg Tabcr PO 05/13/25 20:44 100 mg QDAY CHELE Administration Pantoprazole Sodium 40 mg 04/13/25 21:00 04/14/25 08:53 Pantoprazole Inj 40 Mg Vial IVP 12/03/25 20:59 40 mg QDAY CHELE Administration Plan 69-year-old male with CAD s/p CABG, atrial fibrillation, HTN, and T2DM, admitted for tea-procedural ischemic stroke following recent cardiac cath. Currently hemodynamically stable, neurologically nonfocal except for mild persistent blurry vision. # Cerebral infarction, unspecified Acute infarcts in the right basal ganglia, right caudate nucleus, posterior corpus callosum, and right parietal lobe. Patient?s symptoms (blurry vision) remain stable. DDX: Tea-procedural ischemic stroke: Likely embolic event triggered by discontinuation of Eliquis prior to the procedure. Age-related vulnerability: At 69 years old, the patient is at higher risk for stroke due to arteriosclerosis and age-related vascular changes. Cardiac embolism: Atrial fibrillation increases the risk of thromboembolism, particularly with periods of suboptimal anticoagulation. Vertebrobasilar insufficiency: CTA shows severe stenosis at the origin of the cervical vertebral arteries, which could impair blood flow to posterior circulation, contributing to ischemia. Hypertension: Longstanding history of uncontrolled hypertension can lead to vessel wall damage and increase the likelihood of both embolic and thrombotic strokes. Plan: * Continue aspirin 81 mg daily, Eliquis 5 mg BID, atorvastatin 40 mg daily. * Neurochecks q4h to monitor for worsening deficits or any change in vision, speech, or motor function. * Physical therapy for gait assessment and discharge planning. * Neurology consult for final stroke mechanism clarification and clearance. * Monitor blood pressure to keep it within normal range to prevent further ischemic injury. # Chronic atrial fibrillation, unspecified Stable on current regimen, rate-controlled. Plan: * Continue diltiazem 60 mg BID * Continue metoprolol succinate 100 mg daily. * Maintain K >4 and Mg >2 while on anticoagulation and rate control. # Coronary artery disease, s/p CABG Recent coronary angiogram with normal left and right ventriculograms, EF 55?60%. Plan: * Continue aspirin 81 mg daily and atorvastatin 40 mg daily. * Outpatient follow-up with Dr. Dick in cardiology. # Type 2 diabetes mellitus A1c 6.3, well-controlled on oral agents. Plan: * Continue sliding-scale insulin while inpatient. * Reconcile oral medications at discharge. * Accuchecks pre-meal and at bedtime. * Low-carb consistent diet. # Essential Hypertension Currently well-controlled on current medications. Plan: * Continue current antihypertensives. * Monitor BP regularly while inpatient. * Reconcile meds at discharge as needed. # Polycythemia Elevated hemoglobin (17.7) on admission, stable since 2022. Plan: * Outpatient hematology referral for follow-up and evaluation. # Abnormal urine toxicology screen Fentanyl and benzodiazepine positive; patient denies current use. Likely related to procedural anesthesia. Plan: * Monitor for possible withdrawal. * Document and continue to monitor as patient recovers. Health Maintenance: Diet: Low-carb, consistent carbohydrate diet GI Prophylaxis: Protonix 40 mg daily. DVT Prophylaxis: Eliquis 5 mg BID. Code Status: DNR. Disposition: Anticipate discharge tomorrow if neurology clear. ----- Plan discussed with attending physician Dr. Graham and senior resident Dr. Marcelo Najera MD PGY-1 Internal Medicine Attending Provider Attestation/Addendum I have seen and examined the patient. I was physically present for the brown portions of the services provided including history, physical exam, diagnosis, treatment plans and orders. I agree with assessment and plan of care as documented by residents. Patient is a 69 years old male with past medical history of CAD status post CABG, A-fib, hypertension, diabetes mellitus, who was admitted overnight for management of periprocedural CVA. Patient was found to have right basal ganglia, right caudate nucleus, posterior right corpus callosum and posterior right parietal lobe CVA on MRI. Patient had cardiac catheterization done 3 days back following his face started having dizziness, speech changes, numbness and falls. He went to see his cardiac was sent to the ED for further management. We will continue with his aspirin, Eliquis and statin. Continues to be on diltiazem and metoprolol for A-fib. Insulin regimen for diabetes. Underwent PT evaluation, recommended continuation physical therapy at SNF but family and patient prefers home health. Vital signs have been stable, lab results are mostly stable as well. Noted to have polycythemia. Awaiting neurology recommendations. Even though this this note was carefully revised there may still be minor errors in dry cans operator due to voice recognition software. Keith Graham MD
--- NOTE | 2025-04-14 15:28 | PC.SS ---
SS follow up note; SS was informed by Dr. Graahm in regards to patient discharging home with HH. SS contacted patient's son in regards to HH preference. Patient's son reports he does not have a HH preference.
[2025-04-14] MEDS: ATORVASTATIN CALCIUM 20 MG TABLET 40 MG PO (20:21)
--- NOTE | 2025-04-14 23:28 | ESPR_ITS ---
Documentation for date of: 04/14/25 Subjective Subjective Interval history: Patient was seen in telemetry today with his son at the bedside. Denies any recurrence of similar symptoms after admission from [facility]. Denies any chest pain or shortness of breath. Anxious to be discharged home. Exam - Neurology Vital Signs Temp Pulse Resp BP Pulse Ox O2 Del Method 97.5 F 68 20 137/89 H 94 L Room Air 04/14/25 20:00 04/14/25 20:00 04/14/25 20:00 04/14/25 20:00 04/14/25 20:00 04/14/25 20:00 Narrative Exam GENERAL APPEARANCE: Well hydrated, well-nourished in no acute distress. HEENT: Normocephalic, atraumatic, extraocular movements intact. Pupils: Equal reacting to light and accommodation. NECK: Supple, no JVD or bruits. CARDIOVASULAR: Heart: S1, S2 heard, regular without S3-S4 or murmur no rubs or gallops. LUNGS/CHEST: Clear to auscultation bilaterally. No rails, rhonchi, or wheezing. Normal inspection. ABDOMEN: Soft, nontender, with normal bowel sounds. No pulsatile masses. No rebound, rigidity, or guarding. Normal inspection and palpation. EXTREMITIES: Normal inspection and palpation. No edema, clubbing or cyanosis. SKIN: Warm and dry without rashes. Normal inspection. MUSCULOSKELETAL: No cervical, thoracic, lumbar or midline bony tenderness. Normal inspection. NEURO: Alert, awake and oriented x3. Cranial nerves: II through XII grossly intact. Speech and language: Normal with no dysarthria or dysphasia. Motor system: Tone and bulk: Normal: Strength: 5 out of 5 in all 4 extremities; No pronator drift noted. Deep tendon reflexes: 2+ bilaterally symmetrical. Plantar reflex: Downgoing bilaterally. Sensory system: Intact to all modalities of sensation bilaterally. Coordination: Intact to xdttfe-[id number] and glce-nwll-jgai test bilaterally. No ataxia, no dysmetria, or dysdiadochokinesia noted. No intention tremors noted. Gait: Walked in the hallway with support. No signs of meningeal irritation noted. PSYCHIATRIC: Normal mood and affect. Denies homicidal or suicidal ideation. Objective Labs 04/14/25 04:37 04/14/25 04:37 Labs: Laboratory Results - last 24 hr 04/14/25 04:37 WBC 9.9 RBC 5.50 Hgb 16.3 H Hct 49.7 MCV 90 MCH 29.6 MCHC 32.8 RDW Std Deviation 45.2 H Plt Count 156 D Neut % (Auto) 59 Lymph % (Auto) 30 [place] % (Auto) 8 Eos % (Auto) 2 Baso % (Auto) 0 Neut # (Auto) 5.8 Lymph # (Auto) 3.0 [place] # (Auto) 0.8 Eos # (Auto) 0.2 Baso # (Auto) 0.0 Immature Gran # (Auto) 0.03 H Absolute Nucleated RBC 0.00 Immature Gran % 0 Nucleated RBC % 0 Sodium 143 Potassium 4.4 D Chloride 109 H Carbon Dioxide 26.0 Anion Gap 8 BUN 11 Creatinine 1.0 Estim Creat Clear Calc 91.5 eGFR > 60 BUN/Creatinine Ratio 11 L Glucose [address] Glu mg/dL 134 H Hemoglobin A1c 6.3 H Calculated Osmolality 284 Calcium 8.5 Corrected Calcium 8.6 Phosphorus 3.9 Magnesium 2.5 Total Bilirubin 0.9 AST 24 ALT 20 Alkaline Phosphatase 67 Total Protein 6.4 Albumin 3.9 D Globulin 2.5 Albumin/Globulin Ratio 1.6 Triglycerides 138 Cholesterol 99 L LDL Cholesterol, Calc 35 HDL Cholesterol 36 L Cholesterol/HDL Ratio 2.8 L TSH 2.17 Assessment & Plan Assessment and plan (1) CVA (cerebral vascular accident): Status: Acute Assessment and plan: No focal neurological deficit noted on exam MRI brain showed acute infarction in the right basal ganglia, right caudate nucleus, posterior right corpus callosum, posterior right parietal lobe. Continue with Eliquis and statin Patient is stable from neurology standpoint for discharge. Does not require any rehab. 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: without halfway use Diabetes mellitus complication status: without complication Qualified Code(s): E11.9 - Type 2 diabetes mellitus without complications Status: Chronic Assessment and plan: Continue to keep the A1c under 7 (4) HLD (hyperlipidemia): Qualifiers: Hyperlipidemia type: mixed hyperlipidemia Qualified Code(s): E78.2 - Mixed hyperlipidemia Status: Chronic Assessment and plan: Continue with statin (5) HTN (hypertension): Qualifiers: Hypertension type: primary hypertension Qualified Code(s): I10 - Essential (primary) hypertension Status: Chronic Assessment and plan: Continue with aggressive blood pressure control from morning (6) Afib: Qualifiers: Atrial fibrillation type: longstanding persistent Qualified Code(s): I 48.11 - Longstanding persistent atrial fibrillation Status: Chronic Assessment and plan: Continue with rate control and apixaban (7) CAD (coronary artery disease): Qualifiers: Coronary Disease-Associated Artery/Lesion type: bypass graft, autologous artery Associated angina: without angina Qualified Code(s): I25.810 - Atherosclerosis of coronary artery bypass graft(s) without angina pectoris Status: Chronic Assessment and plan: Status post coronary artery bypass graft Continue with vascular risk factors controlled He would need sleep study as an outpatient to confirm/rule out obstructive sleep apnea
[2025-04-15] VITALS (7 sets, daily range): BP systolic 127–141; BP diastolic 88–99; PULSE 61–73; RESP 16–24; TEMP 36.1–36.6; O2SAT 94–97; BMI 40.7
[2025-04-15 06:27] LABS: Basophils # (Auto) 0.0 Thou/mm3 (0.0-0.2); Basophils % (Auto) 0 % (0-2.5); Eosinophils # (Auto) 0.2 Thou/mm3 (0.0-0.5); Eosinophils % (Auto) 2 % (0-10); Hematocrit 49.8 % (41.0-53.0); Hemoglobin 16.6 g/dL (13.5-16.0); Immature Granulocytes Auto 0.03 Thou/mm3 (0.00-0.00); Lymphocytes # (Auto) 3.0 Thou/mm3 (1.0-4.8); Lymphocytes % (Auto) 29 % (10-50); Mean Corpuscular HGB Conc 33.3 g/dl (31.0-37.0); Mean Corpuscular Hemoglobin 30.2 pg (25.0-35.0); Mean Corpuscular Volume 91 fL (80-100); Monocytes # (Auto) 0.8 Thou/mm3 (0.0-0.8); Monocytes % (Auto) 8 % (0-12); Neutrophils # (Auto) 6.3 Thou/mm3 (1.8-7.7); Neutrophils % (Auto) 61 % (37-80); Nucleated Red Blood Cell # 0.00 Thou/mm3 (0.00-0.00); Nucleated Red Blood Cell % 0 /100 WBC (0); Platelet Count 174 Thou/mm3 (140-440); RDW Standard Deviation 44.3 fL (35.1-43.9); Red Blood Count 5.50 Miln/mm3 (4.50-5.90); White Blood Count 10.5 Thou/mm3 (3.8-10.6)
[2025-04-15 06:49] LABS: Alanine Aminotransferase 22 U/L (10-49); Albumin, Serum 4.2 gm/dL (3.4-4.8); Albumin/Globulin Ratio 1.6 (1.2-2.2); Alkaline Phosphatase 67 U/L (46-116); Anion Gap 9 (7-16); Aspartate Amino Transferase 28 U/L (0-34); BUN/Creatinine Ratio 13 Ratio (12-20); Bilirubin,Total 1.2 mg/dL (0.3-1.2); Blood Urea Nitrogen 10 mg/dL (9-23); Calcium 8.7 mg/dL (8.3-10.6); Calcium (Corrected) 8.7 mg/dL (8.5-10.1); Carbon Dioxide 25.7 mMol/L (20.0-31.0); Chloride 109 mMol/L (98-107); Creatinine (Component) 0.8 mg/dL (0.6-1.3); Estimated Creatinine Clearance 114.2 mL/min (>60); Globulin 2.6 gm/dL (2.3-3.5); Glucose 104 mg/dL (74-106); Magnesium 2.0 mg/dL (1.6-2.6); Osmolality,Calculated 285 (275-295); Phosphorous 3.1 mg/dL (2.4-5.1); Potassium 3.9 mMol/L (3.4-5.1); Sodium 144 mMol/L (136-145); Total Protein 6.8 gm/dL (5.7-8.2); eGFR > 60 See Note
--- NOTE | 2025-04-15 07:22 | PD.RESPRO ---
Documentation for date of: 04/15/25 Subjective Subjective Interval history: Patient is 69-year-old male with past medical history significant for coronary artery disease status post double bypass on 06/2022 on aspirin, history of A-fib on Eliquis, hypertension and hyperlipidemia. Patient had outpatient ischemic cardiac workup, NST showed abnormal myocardial perfusion study and with decreased uptake in the inferior lateral segment of LV with stress and improved with rest indicating ischemia. With EF of 31%. Given the abnormal stress test, LHC with bypass angiogram were performed on 04/10/2025 which showed mild to moderate coronary artery disease. Left main artery with mild diffuse stenosis, patent bypass graft ASHBY to LAD, 50-60% stenosis of ostial diagonal 1, mild difuse disease of LCx, 70-80% stenosis of proximal OM1, 100% occluded bypass grafts Radial artery to Diagonal 1. Rest of the coronary branches with no significant angiographic disease. LVEF is normal at 55-60%. Normal LVEDP at 8 mmHg. There was no significant transvalvular aortic gradient. Patient was monitored in [facility] for couple of hours and safely discharged home recommended to continue aggressive medical management and aggressive risk factor modification. However on 04/13/2025 patient presented to office for cardiology follow-up. The patient presented with complaints of visual disturbances and mild imbalance. Upon arrival at the clinic, the patient was using a walker, and physical examination confirmed the presence of imbalance. Given the patient's age, history of atrial fibrillation, recent withholding of Eliquis prior to the procedure, and the nature of the procedure itself, the patient is considered to be at high risk for a stroke. The patient was advised to seek evaluation in the emergency department for further stroke workup. An MRI was performed, revealing an acute infarct in the right basal ganglia, right caudate nucleus, posterior right corpus callosum, and posterior right parietal lobe, consistent with an ischemic event. Cardiology was consulted for ongoing management and care. 04/15/2025: patient was seen and examined, No acute overnight events. Labs and vitals are stable. Neurology following the case. Per patient symptoms are slowely improving, He worked with PT, who recommended outpatient PT. From cardiology stand point patient is ok to be DC with the same medications that he was on, close follow up with Cardio outpatient after discharge. Exam Vital Signs Temp Pulse Resp BP Pulse Ox O2 Del Method 97.5 F 63 16 127/91 H 96 Room Air 04/15/25 04:00 04/15/25 04:00 04/15/25 04:00 04/15/25 04:00 04/15/25 04:00 04/15/25 04:00 Narrative Exam GENERAL: no acute distress, AAO x3, well nourished. HEENT: Head AT/ NC. Mucous membranes moist. PERRL. NECK: Supple, no lymphadenopathy, no carotid bruits. CARDIOVASCULAR: RRR. Normal S1/S2, No m/r/g. No pitting edema of bilateral LEs. RESPIRATORY: CTAB. No wheezing, rhonchi, crackles. GASTROINTESTINAL: Abdomen soft, non tender no palpable masses. Bowel sounds present in all 4 quadrants. MUSCULOSKELETAL:? No cyanosis or edema, no visible joint swelling. NEUROLOGICAL: CN II-XII grossly intact. No focal deficits. gait unsteady with closed eyes. loses balance during Romberg testing PSYCHIATRIC: Awake and alert, not agitated, normal mood and affect. INTEGUMENTARY: No obvious rashes, no jaundice, normal turgor. Objective Labs 04/15/25 05:45 04/15/25 05:45 Labs: Laboratory Results - last 24 hr 04/14/25 04/15/25 04:37 05:45 WBC 9.9 RBC 5.50 Hgb 16.3 H Hct 49.7 MCV 90 MCH 29.6 MCHC 32.8 RDW Std Deviation 45.2 H Plt Count 156 D Neut % (Auto) 59 Lymph % (Auto) 30 [place] % (Auto) 8 Eos % (Auto) 2 Baso % (Auto) 0 Neut # (Auto) 5.8 Lymph # (Auto) 3.0 [place] # (Auto) 0.8 Eos # (Auto) 0.2 Baso # (Auto) 0.0 Immature Gran # (Auto) 0.03 H Absolute Nucleated RBC 0.00 Immature Gran % 0 Nucleated RBC % 0 Sodium 144 Potassium 3.9 D Chloride 109 H Carbon Dioxide 25.7 Anion Gap 9 BUN 10 Creatinine 0.8 Estim Creat Clear Calc 114.2 eGFR > 60 BUN/Creatinine Ratio 13 Glucose 104 Calculated Osmolality 285 Calcium 8.7 Corrected Calcium 8.7 Phosphorus 3.1 Magnesium 2.0 Total Bilirubin 1.2 AST 28 ALT 22 Alkaline Phosphatase 67 Total Protein 6.8 Albumin 4.2 Globulin 2.6 Albumin/Globulin Ratio 1.6 Quality Measures Quality Measures none Advance care planning discussed with:: patient Assessment & Plan Assessment Current Active Medications: Generic Name Dose Route Start Last Admin Trade Name Kevin PRN Reason Stop Dose Admin Acetaminophen 650 mg 04/13/25 20:32 Acetaminophen 325 Mg Tablet PO 05/13/25 20:31 Q6H PRN PAIN 1-3 OR FEVER > 101 Apixaban 5 mg 04/13/25 21:00 04/14/25 20:20 Apixaban 2.5 Mg Tablet PO 05/13/25 20:59 5 mg BID CHELE Administration Aspirin 81 mg 04/14/25 09:00 04/14/25 08:53 Aspirin Ec 81 Mg Tabec PO 05/14/25 08:59 81 mg QDAY CHELE Administration Atorvastatin Calcium 40 mg 04/13/25 21:00 04/14/25 20:21 Atorvastatin Calcium 20 Mg Tablet PO 05/13/25 20:59 40 mg HS CHELE Administration Dextrose 25 ml 04/13/25 20:40 Dextrose 50%-Water Inj 50 Ml Syringe IV 05/13/25 20:39 Q15MIN PRN BG 50-70 responsive npo pt Dextrose 50 ml 04/13/25 20:40 Dextrose 50%-Water Inj 50 Ml Syringe IV 05/13/25 20:39 Q15MIN PRN BG <50 OR BG <70 & pt unresponsive Diltiazem HCl 120 mg 04/14/25 09:00 04/14/25 08:51 Diltiazem Cd 120 Mg Capcr PO 05/14/25 08:59 120 mg DAILY CHELE Administration Glucagon 1 mg 04/13/25 20:40 Glucagon Inj 1 Mg Vial IM Q15MIN PRN BG <70, and no IV access Insulin Human Lispro 0 unit 04/14/25 07:30 04/14/25 18:26 Insulin Lispro (Admelog) 1 Unit/0.01 Ml Unit SC 05/14/25 07:29 Not Given AC [facility] Protocol Labetalol HCl 10 mg 04/13/25 18:56 Labetalol Inj 5 Mg/Ml Vial 20 Ml IVP Q15M PRN HYPER Metoprolol Succinate 100 mg 04/13/25 20:45 04/14/25 08:52 Metoprolol Succinate Xl 25 Mg Tabcr PO 05/13/25 20:44 100 mg QDAY CHELE Administration Pantoprazole Sodium 40 mg 04/15/25 09:00 Pantoprazole 40 Mg Tablet PO 05/15/25 08:59 QDAY [facility] Plan 69-year-old male with a history of CAD, status post-CABG, atrial fibrillation, hypertension, and T2DM, presented to ED referred by his parent aide, Dr. Dick, for evaluation of persistent lightheadedness and blurred vision given the high risk of stroke #Acute stroke with acute infarct Right caudate nucleus, Posterior right corpus callosum and posterior right parietal lobe Differential diagnosis includes recent stopping of anticoagulants for the left heart cardiac catheterization with history of A-fib, advanced age, possible hyperviscosity along with periprocedural complications. The patient presented with complaints of visual disturbances and mild imbalance. Upon arrival at the clinic, the patient was using a walker, and physical examination confirmed the presence of imbalance. -Restarted Aspirin 81 mg daily -Restarted Apixaban 5 mg twice daily -Restarted Atorvastatin 40 mg daily (per teleneurologist recommendation). -Neurochecks -Neurology was consulted by primary team and will await final recs from them -Patient will need physical therapy as outpatient #Chronic persistent Atrial Fibrillation: Patient does have a longstanding history of atrial fibrillation and he recently started following up in the office. He does have a history of CAD and CABG and as well as dilated atria and along with advanced age with obesity and probable sleep apnea puts him at higher risk of atrial fibrillation. [id number]: 4 Rate: Controlled -Current Medications:Eliquis 5 mg twice daily, Metoprolol succinate 100 mg daily. continue on Discharge -Electrolyte Monitoring: Ensure magnesium levels remain >2 and potassium levels >4. -follow up outpatient with #CAD status post CABG in 2022 with ASHBY to LAD as well as left radial to diagonal. # Last cardiac catheterization April 10, 2025 showed moderate residual CAD #Hypertension Patient had outpatient ischemic cardiac workup, NST showed abnormal myocardial perfusion study and since there was a decreased uptake in the inferior lateral segment of LV with stress and improved with rest indicating ischemia low EF. Given the abnormal stress test, C with bypass angiogram were performed on 04/10/2025 which showed mild to moderate coronary artery disease. Left main artery with mild diffuse stenosis Left main artery with mild diffuse stenosis, patent bypass graft ASHBY to LAD, 50-60% stenosis of ostial diagonal 1, mild difuse disease of LCx, 70-80% stenosis of proximal OM1, 100% occluded bypass grafts Radial artery to Diagonal 1. Rest of the coronary branches with no significant angiographic disease. LVEF is normal at 55-60%. Normal LVEDP at 8 mmHg. There was no significant transvalvular aortic gradient. Patient was monitored in [facility] for couple of hours and safely discharged home recommended to continue aggressive medical management and aggressive risk factor modification. -continue medication -continue aggressive medical management and aggressive risk factor modification. chronic conditions #Polycythemia #diabetes mellitus type II # Obesity # Questionable sleep apnea to be managed by primary team Patient care was discussed with attending physician Dr. Kapil Fontanez MD PGY-3 I have carefully reviewed this document. Due to imperfections in the voice software, there could be grammatical errors including phonetic/typographic errors. This in no way compromises the medical care the patient is receiving Attending Provider Attestation/Addendum I have personally seen and examined the patient separately on the above date of service and discussed the plan of care with the resident. I reviewed the resident Dr. Candy Gutierrez consultation progress note and agree with the resident findings and plan in the note above and have also edited the documentation to reflect my findings and plan. Myles Dick M.D. Interventional Cardiology
[2025-04-15] MEDS: APIXABAN 2.5 MG TABLET 5 MG PO (08:43)
[2025-04-15] MEDS: DILTIAZEM CD 120 MG CAPCR PO (08:43)
[2025-04-15] MEDS: ASPIRIN EC 81 MG TABEC PO (08:43)
[2025-04-15] MEDS: PANTOPRAZOLE 40 MG TABLET PO (08:43)
[2025-04-15] MEDS: METOPROLOL SUCCINATE XL 25 MG TABCR 100 MG PO (08:44)
--- NOTE | 2025-04-15 11:10 | PC.NURSE ---
Patient discharge pending d/t discharge packet incomplete, MD made aware.
--- NOTE | 2025-04-15 14:28 | ESDS_ITS ---
<Statement entered by Sawyer Lewis MD - 04/30/25 07:50> I reviewed above note and agree with findings and plans. I have also personally examined the patient with medicine team and went over assessment and plan with medical team including exercise science internship and resident physician. <Statement entered by Pipe Watters MD - 04/15/25 15:01> I have personally seen and examined the patient, agree with residents assessment and plan Patient plan of care was discussed with the attending physician, Dr. Debbie Watters, PGY2 Planned Discharge Date 04/15/25 DS: Providers Provider Date of admission: 04/13/25 20:52 Primary care physician: Physician No Primary/Family Admitting Provider: Avery Cedeno MD Attending Provider on Admission: Keith Graham MD Consults: 04/13/25 18:56 Consult to Neurology / Tele-Neurology Routine Comment: Consulting Provider: [facility] 04/13/25 21:47 Referral Physical Therapy Routine Comment: Physician Instructions: 04/13/25 21:51 Consult to Neurology / Tele-Neurology Routine Comment: STROKE Consulting Provider: Rodger Ly 04/14/25 08:10 Consult to Cardiology Routine Comment: Consulting Provider: Myles Dick Attending Provider on DC: Sawyer Lewis MD Discharging Provider: Jerardo Najera MD DS: Diagnosis Problem List Completed Was Problem List Reviewed/Reconciled?: Yes Hospital Course Hospital Course Hospital course: 69-year-old male with a history of CAD s/p CABG, chronic atrial fibrillation on Eliquis, hypertension, and type 2 diabetes, who was admitted after experiencing dizziness and blurred vision for three days following a cardiac catheterization on 04/09. Initial imaging revealed acute ischemic infarcts involving the right basal ganglia, right caudate nucleus, posterior right corpus callosum, and right parietal lobe. CTA head and neck demonstrated severe flow-limiting stenosis at the origin of the vertebral arteries, but no large vessel occlusion or aneurysm. Neurology evaluated the patient and determined that the etiology was likely multifactorial including temporary interruption of Eliquis prior to procedure, underlying atherosclerotic disease, vertebral artery stenosis, and advanced age. The patient remained neurologically stable throughout hospitalization, with only mild persistent blurry vision and no focal deficits. He was restarted on Eliquis, aspirin, and atorvastatin for secondary stroke prevention. Metoprolol and diltiazem were continued for rate control. PT and neurology cleared him for discharge, and he was advised on lifestyle modification and strict medication adherence. He remained hemodynamically stable with no recurrence of symptoms and was deemed appropriate for discharge home in stable condition. Discharge Diagnoses: # CVA # Chronic atrial fibrillation # CAD s/p CABG # Type 2 diabetes mellitus without complication # Essential hypertension # Mixed hyperlipidemia # Secondary polycythemia # Obesity Discharge Instructions: -Follow-up with PCP within 1 week of discharge. If you do not have appointment, please follow-up with the [facility] with Dr. Watters. Call [phone] to make an appointment. -Please continue Eliquis 5 mg twice daily indefinitely for afib -Please obtain referral for Physical Therapy outpatient -Continue home medications and follow up with Dr. Riojas and Dr. Crawley within 1 week of discharge -Recommended to follow up with PCP in view of elevated hemoglobin evaluation -Return to ED if symptoms persist or return ----- Plan discussed with attending physician Dr. Lewis and senior resident Dr. Janene Njaera MD PGY-1 Internal Medicine Time Spent with Patient Time attestation: Total time spent providing and/or coordinating discharge services: Time spent: Greater than 30 minutes Quality: Stroke Pt Provided Written Stroke Discharge Instructions: Yes Home Health Home Health Referral Orders: 04/14/25 15:23 Home Health Referral Routine Reason For Exam: CVA Home-Bound The patient must either because of illness or injury, need the aid of supportive devices such as crutches, canes, wheelchairs, and walkers; the use of special transportation; or the assistance of another person in order to leave their place of residence; OR have a condition such that leaving his or her home is medically contraindicated. In addition, the patient also meets the following criteria: patient is normally unable to leave the home and leaving home requires considerable taxing effort. Addendum to Home Health Certification Practitioner's Certification: I certify that the patient has been under my care in the hospital and the care of attending physician (see below). We had a [id number] encounter on (see date below). My clinical findings indicate that the patient is home bound per the above criteria and the Home Health Services noted in these orders are medically necessary. The primary reason for the mthg-[id number]-[id number] encounter is related to the fact that the patient requires home health services. Date Certifying [id number] Physician Encounter: 04/13/25 Physician's Name who will Assume Oversight for HH Services: Woo Bravo Physician's Phone No.who will Assume Oversight for Service: CHARLES SIZE MIXER - Community Resources: No PT to Evaluate: Yes PT to evaluate and provide a treatmnet plan to increase patient's mobility and strength. Wound Care: No IV Therapy: No RN Safety Evaluation: Yes RN to evaluate and create a plan of care that will produce positive outcomes. Palliative Treatment: No Palliative treatment and evaluate the need for hospice. Home Health Aide - Personal Care: No Home Health Aide to assist with any ADL's. Exam Vital Signs Temp Pulse Resp BP Pulse Ox O2 Del Method 97.0 F 66 16 141/99 H 94 L Room Air 04/15/25 12:00 04/15/25 12:00 04/15/25 12:00 04/15/25 12:00 04/15/25 12:00 04/15/25 12:00 Discharge Plan Plan Patient Disposition: HOME (Self Care) Care Plan Goals: -Follow-up with PCP within 1 week of discharge. If you do not have appointment, please follow-up with the [facility] with Dr. Watters. Call [phone] to make an appointment. -Please continue Eliquis 5 mg twice daily indefinitely for afib -Please obtain referral for Physical Therapy outpatient -Continue home medications and follow up with Dr. Riojas and Dr. Crawley within 1 week of discharge -Recommended to follow up with PCP in view of elevated hemoglobin evaluation -Return to ED if symptoms persist or return Prescriptions/Referrals Prescriptions/Med Rec: Continued Eliquis 5 mg tablet 5 mg PO BID Qty: 60 2RF Patient Comments: PER PATIENT HE TOOK MEDICATION THIS MORNING aspirin 81 mg tablet 81 mg PO QDAY Qty: 90 1RF atorvastatin 40 mg tablet 40 mg PO QHS Qty: 30 2RF carvedilol 3.125 mg tablet 3.125 mg PO BID Qty: 60 2RF Rx Instructions: must administer with a meal/food diltiazem HCl 60 mg capsule,extended release 12 hr 60 mg PO BID Qty: 60 2RF Jardiance 10 mg tablet 10 mg PO QDAY Qty: 30 2RF famotidine 20 mg tablet 20 mg PO BID Qty: 60 2RF metformin 1,000 mg tablet 1,000 mg PO BID Qty: 60 2RF Wegovy 1 mg/0.5 mL pen injector 1 mg subcut QWEEK Qty: 2 0RF Rx Instructions: administer weeks 9 through 12 of therapy metoprolol succinate 100 mg capsule,sprinkle,ER 24hr 100 mg PO QDAY Referrals: Physical Therapy web,Generic, PT [Physical Therapist] Referral Note: Please obtain outpatient Physical Therapy No Primary/Family,Physician [Primary Care Provider] Rodger Ly MD [Physician, Neurology] Referral Note: Follow up of stroke Patient/Caregiver Discharge Instructions Education Materials: AFL/Afib, Stroke: Taking Medicines, 5 Steps for Eating Healthier, Stroke: Self-Care, Stroke Self Care After Print Language: Vincentian Stand Alone Forms: Julia Award Info., Patient Portal Info Letter Discharge Order Discharge Orders: Discharge (Routine); Ordered 04/15/25 Ordered By: Pipe Watters Quality Discharge Quality Measures VTE prophylaxis
--- NOTE | 2025-04-16 08:00 | PC.CC ---
Addendum entered by Hamida Gomez RN 04/17/25 11:03: [facility] will open patient on 04/20. Addendum entered by Debra Fernando RN 04/16/25 08:33: [facility] accepted and booked, SOC pending Original Note: [facility] ref sent out, waiting for response
== END 2025-04-15 14:31 | disposition home or self-care (01) | DRG 65 ==
LOC: SERX 18:48 → SERHOLD 20:53 → S2NX 23:20
PROVIDERS: Emergency Medicine; Admitting Provider Internal Medicine; Emergency Provider Emergency Medicine; Visit Provider Student in an Organized Health Care Education/Training Program
DX: I63.89 Other cerebral infarction (principal); I48.20 Chronic atrial fibrillation, unspecified; H53.8 Other visual disturbances; Z95.1 Presence of aortocoronary bypass graft; I25.10 Atherosclerotic heart disease of native coronary artery without angina pectoris; I10 Essential (primary) hypertension; E11.9 Type 2 diabetes mellitus without complications; R29.701 NIHSS score 1; Z79.01 Long term (current) use of anticoagulants; D75.1 Secondary polycythemia; Z66 Do not resuscitate
CPT/HCPCS: 36415; 70450; 70496; 70498; 70551; 80053; 80061; 80307; 80320; 81001; 83036; 83690; 83735; 83880; 84100; 84443; 84484; 85025; 85610; 85730; 93005; 96374; 97162; 99284; A4649; J2470; J3475; J7030; Q9967; A9270; G0480